=== PATIENT | male | born 1970 | race Caucasian/White ===

== ENCOUNTER 2020-07-16 10:06 | Outpatient (REF) | payer MEDICAID, SELFPAY ==
--- NOTE | 2020-07-16 10:13 | XR_ITS ---
EXAMINATION: XR LUMBOSACRAL SPINE CLINICAL INFORMATION: Lumbago with sciatica left and right side. COMPARISON: CT abdomen of 12/24/2010. TECHNIQUE: Three views of the lumbosacral spine. FINDINGS: There are 5 nonrib-bearing lumbar vertebra. No acute fracture, spondylolisthesis, or spondylolysis is appreciated. There is severe narrowing of the L5-S1 disc space with bilateral facet arthropathy right greater than left at the L5-S1 level. Sacroiliac joints unremarkable. Pedicles are intact. XR/XR lumbar spine 2-3V IMPRESSION: No acute fracture, spondylolisthesis, or spondylolysis. Degenerative disc disease L5-S1 with facet arthropathy.
== END 2020-07-16 10:07 | disposition home or self-care (01) ==
LOC: HO.XRAY 10:06
PROVIDERS: PCP Internal Medicine; Visit Provider Internal Medicine
DX: M54.41 Lumbago with sciatica, right side (principal); M54.42 Lumbago with sciatica, left side
CPT/HCPCS: 72100

== ENCOUNTER 2021-03-14 14:00 | Outpatient (RCR) | payer MEDICAID, SELFPAY | END 2021-03-19 14:29 | disposition home or self-care (01) | LOC: HO.PT 14:00 | PROVIDERS: PCP Internal Medicine; Visit Provider Internal Medicine | DX: M54.42 Lumbago with sciatica, left side (principal) | CPT/HCPCS: 97110; 97112; 97150; 97161 ==

== ENCOUNTER 2023-06-15 15:55 | Outpatient (REF) | payer OTHER, SELFPAY ==
[2023-06-15 17:24] LABS: MANUAL DIFF FLAG NO
[2023-06-15 17:42] LABS: Alanine Aminotransferase 14 U/L (0-40); Albumin Level 4.3 g/dL (3.5-5.0); Alkaline Phosphatase 83 U/L (39-117); Anion Gap 9 (12-20); Aspartate Amino Transferase 22 U/L (5-37); Bilirubin Direct 0.1 mg/dL (0.0-0.5); Bilirubin Total 0.3 mg/dL (0.0-1.0); Blood Urea Nitrogen 8 mg/dL (9-16); Calcium 9.5 mg/dL (8.4-10.2); Carbon Dioxide 28 mmol/L (22-29); Chloride 105 mmol/L (96-108); Estimated Glomerular Filt Rate > 60; Glucose Random 81 mg/dL (60-115); Potassium 3.7 mmol/L (3.3-5.1); Sodium 138 mmol/L (135-145); Total Protein 7.4 g/dL (6.5-8.0)
[2023-06-15 17:56] LABS: Basophils Absolute Auto 0.1 X10*3/uL (0.0-0.2); Basophils Percent Auto 0.6 % (0-2); Eosinophils Absolute Auto 0.1 X10*3/uL (0.0-0.4); Eosinophils Percent Auto 1.3 % (0-4); Hematocrit 44.5 % (42.0-52.0); Hemoglobin 14.6 g/dl (14.0-18.0); Imm Gran Abs Auto 0.04 X10*3/uL (0.00-0.03); Imm Gran Pct Auto 0.5 % (0.0-0.4); Lymphocytes Percent Auto 35.8 % (20-40); Mean Corpuscular HGB Conc 32.8 g/dl (31.0-36.0); Mean Corpuscular Hemoglobin 30.9 pg (27.0-33.0); Mean Corpuscular Volume 94.1 fL (80.0-98.0); Mean Platelet Volume 9.3 fL (9.4-12.4); Monocytes Absolute Auto 0.7 X10*3/uL (0.1-1.2); Monocytes Percent Auto 8.5 % (2-11); Neutrophils Absolute Auto 4.5 x10*3/uL (2.0-8.3); Neutrophils Percent Auto 53.3 % (45-73); Platelet Count 266 X10*3/uL (160-400); Red Blood Count 4.73 X10*6/uL (4.60-5.80); Red Cell Distribution Width 13.5 % (11.0-16.0); White Blood Count 8.5 X10*3/uL (4.8-10.8)
[2023-06-15 17:57] LABS: TSH reflex Free T4 1.78 uIU/mL (0.32-4.0); Vitamin D 25-OH Total 21.3 ng/mL (>30)
[2023-06-16 03:56] LABS: Syphilis Screen Nonreactive (Nonreactive)
[2023-06-16 04:08] LABS: HIV AB/AG Nonreactive (Nonreactive); HIV Num 1 0.05 S/CO (0.00-0.99)
== END 2023-06-15 15:56 | disposition home or self-care (01) ==
LOC: HO.HHCL 15:55
PROVIDERS: Visit Provider Internal Medicine
DX: M17.0 Bilateral primary osteoarthritis of knee (principal); R73.01 Impaired fasting glucose; Z72.51 High risk heterosexual behavior
CPT/HCPCS: 36415; 80053; 82248; 82306; 84443; 85025; 86780; 87389

== ENCOUNTER 2023-07-06 14:28 | Outpatient (REF) | payer OTHER, SELFPAY ==
[2023-07-06 18:41] LABS: CT PCR NOT DETECTED (Not Detect.); NG PCR NOT DETECTED (Not Detect.)
== END 2023-07-06 14:29 | disposition home or self-care (01) ==
LOC: HO.HHCL 14:28
PROVIDERS: Visit Provider Internal Medicine
DX: Z72.51 High risk heterosexual behavior (principal)
CPT/HCPCS: 0353U

== ENCOUNTER 2023-09-25 12:04 | Outpatient (REF) | payer OTHER, SELFPAY ==
[2023-09-28 10:48] LABS: TS Negative Control Passed; TS Panel A 0; TS Panel B 0; TS Positive Control Passed; TSpotTB Negative (Negative)
== END 2023-09-25 12:05 | disposition home or self-care (01) ==
LOC: HO.HHCL 12:04
PROVIDERS: Visit Provider Family Medicine
DX: Z11.1 Encounter for screening for respiratory tuberculosis (principal); L40.9 Psoriasis, unspecified
CPT/HCPCS: 36415; 86481

== ENCOUNTER 2023-11-30 13:45 | Outpatient (AMB) | payer OTHER, SELFPAY ==
--- NOTE | 2023-11-30 14:05 | MHC.OFFVIS ---
Intake Visit Reasons: Hx tubular Polyps Intake Note: New consult for Hx tubular polyps. Patient cc: acid reflex on and off, between diarrhea and constipationsom eswallowing problems. Director Of Physician Practices Required: Yes Director Of Physician Practices Name: [facility] Interpeter Accompanied by: Self / Same As Patient Allergies codeine [CODEINE] Allergy (Intermediate, Unverified 04/12/20 14:38) ITCHING acetaminophen [Percocet] Allergy (Unknown, Verified 03/19/20 00:00) oxycodone [Percocet] Allergy (Unknown, Verified 03/19/20 00:00) HPI HPI Hx tubular Polyps: Details: LAST COLONOSCOPY 02/27/2020 Findings: Terminal Ileum ? Not evaluated Cecum ? A 6-7 mm sessile polyp removed with a cold snare. Ascending Colon ? A 2.5 x 3 cms sessile polyp in mid AC raised with 4 cc of normal saline (submucosal injection) and removed with a hot snare and polypectomy site marked with lc ink. A 2nd 2.5 x 3 cms sessile polyp in the distal AC overlying a fold removed with a hot snare. Both polyps were retrieved with a García net. A few additional 5-8 mm sessile polyp which were not removed due to excessive length of the procedure. Transverse Colon - Normal Descending Colon ? Normal Sigmoid Colon ? A 5-6 mm sessile polyp removed with a cold biopsy and moderate diverticulosis. Rectum ? Normal Ano-rectum - Moderate internal hemorrhoids Colon preparation: Good after copious irrigation Impression and Post Procedure Diagnosis: Colonoscopy Findings: Four polyps removed Moderate diverticulosis seen in the sigmoid colon Moderate hemorrhoids on retroflexed exam. Plan: Await pathology results Patient has an appointment on 03/19/20 in the GI Clinic with TISH Johns. Repeat Colonoscopy in 1 year to check polypectomy sites in the AC and removal of remaining AC polyps. Above findings were reviewed with the patient and handout on colon polyps was given in the discharge area BIOPSIES SHOWED: A. Colon, sigmoid polyp, polypectomy: Fragments of hyperplastic polyp. B. Colon, cecal polyp, polypectomy: Polypoid colonic mucosa within normal limits; negative for dysplasia. C. Colon, ascending polyps, polypectomy: Fragments of tubular adenomas. D. Colon, right, biopsies: Colonic mucosa within normal limits; no evidence of microscopic colitis. TODAY'S VISIT: 53 year old? male here today for pre colonoscopy screening.?? Patient denies any gastrointestinal symptoms in the past or at present.? However he does admit to having occasional acid reflux, dyspepsia and trouble swallowing depending on what he eats.? Denies history of difficulty with sedation or anesthesia in the past.? Negative for history of sleep apnea.? Denies any history of cardiac, renal, pulmonary, or hepatic disease.?? No history of infectious? diseases like hepatitis A, B, C, HIV or tuberculosis.? Patient is not on any anticoagulation therapy. PFSH Surgical History (Updated 11/30/23 @ 14:13 by Raquel Noel) Hx of hernia repair Family History (Updated 11/30/23 @ 14:14 by Raquel Noel) Father Cancer Mother Cancer Social History (Updated 11/30/23 @ 14:16 by Raquel Noel) Household Members: Family Alcohol intake: never Patient Tobacco Use Status: Current everyday Tobacco user Tobacco use type: Cigarette Substance Use Type: Marijuana Review of Systems Const Denies weight gain and Denies weight loss ENT Reports no additional complaints, Reports dysphagia and Denies odynophagia Card Reports no additional complaints Resp Reports no additional complaints GI Denies abdominal pain, Denies belching, Denies melena, Denies bloating, Denies change in bowel habits, Reports dysphagia, Denies excessive flatus, Reports dyspepsia (Occasional), Reports heartburn (Occasional), Denies diarrhea, Denies loose stools, Denies nausea, Denies odynophagia and Denies vomiting Reports no additional complaints Musc Reports no additional complaints Neuro Reports no additional complaints Psych Reports no additional complaints Endo Reports no additional complaints Physical Exam Const General: healthy appearing, no acute distress and well developed Nutritional Appearance: well nourished Orientation/consciousness: patient oriented x3 Resp Effort & Inspection: normal respiratory effort, able to speak in complete sentences, no tracheal deviation and symmetric chest movement Auscultation: clear to auscultation bilaterally Cardio Rate: regular rate GI Inspection: Yes normal to inspection and No distended Palpation (GI): Soft to palpation, not firm, nontender and No hepatosplenomegaly present Auscultation: normal bowel sounds General: Yes no CVA tenderness Back/Spine/Pelvis Back: no CVA tenderness Skin General skin exam: elasticity normal, turgor normal and dry skin Neuro General: patient oriented x3 Psych Appearance: grossly normal Mental Status: mental status grossly normal Assessment & Plan Assessment & Plan (1) Screen for colon cancer: Code(s): Z12.11 - Encounter for screening for malignant neoplasm of colon Plan Patient denies any cardiac or respiratory symptoms.? Occasional acid reflux, dyspepsia and occasional dysphagia depending on what he eats. Patient moving his bowels, occasionally softer, denies feeling constipated. Denies any issues with anesthesia in the past.? Denies any history of sleep apnea.? No history infectious diseases in the past or present.? Not on any anticoagulation therapy.? No family or personal history of CRC.? Patient denies melena, hematochezia, unintentional weight loss or ribbon like stools.? Discussed at length the pre-procedure,? prep, diet & medications as well as what to expect prior, during and after the procedure.?? Stressed the importance of good bowel prep. ?Recommended the use of Vaseline or Calmoseptine OTC & baby wipes with bowel movements to promote comfort.? ?Patient verbalizes understanding and agrees to plan of care.? He was given the opportunity to ask questions and all questions answered.? We will see him after the procedure.? Medications: New bisacodyl (Dulcolax (bisacodyl)) take 4 tabs at noon the day before your colonoscopy 20 mg (4 x 5 mg) PO ONCE 4 tabs 0RF 1 day Z12.11 - Encounter for screening for malignant neoplasm of colon polyethylene glycol 3350 (Miralax) As directed by gastroenterology department at [facility] 238 grams PO ONCE 238 grams 0RF Z12.11 - Encounter for screening for malignant neoplasm of colon Coding Level of Care Code New Pt Level 3 (46561) Diagnoses Screen for colon cancer Z12.11 Time Spent (min) 40 Comment 30 minutes spent with patient and additional 10 minutes spent reviewing his records
== END 2023-11-30 14:43 | disposition home or self-care (01) ==
PROVIDERS: PCP Internal Medicine; Visit Provider Nurse Practitioner Family
DX: Z12.11 Encounter for screening for malignant neoplasm of colon (principal); Z01.818 Encounter for other preprocedural examination
CPT/HCPCS: 99203

== ENCOUNTER → 2023-11-30 13:45 | Outpatient (BNVA) | payer OTHER, SELFPAY | PROVIDERS: PCP Internal Medicine; Visit Provider Nurse Practitioner Family | DX: Z12.11 Encounter for screening for malignant neoplasm of colon (principal) | CPT/HCPCS: 99202 ==

== ENCOUNTER 2024-03-18 13:27 | Day surgery (SDC) | payer OTHER, SELFPAY ==
[2024-03-18 13:31] VITALS: BMI 23.2
[2024-03-18 13:42] VITALS: BP 145/83; PULSE 98; RESP 13; TEMP 36.1; O2SAT 96
--- NOTE | 2024-03-18 13:52 | MHC.SHP ---
Pre-Procedural Eval Section A - 24 Hr Update-Section A only Date of Service: 03/18/24 Section B - Complete if H&P > 30 days Chief Complaint: History of polyps, GERD Details of Present Illness: Hx of hernia repair Family History (Updated 11/30/23 @ 14:14 by Raquel Noel) Father Cancer Mother Cancer Allergies: Allergies Allergy/AdvReac Type Severity Reaction Status Date / Time codeine [CODEINE] Allergy Intermediate ITCHING Verified 03/18/24 13:36 oxycodone [Percocet] Allergy Unknown Anaphylaxis Verified 03/18/24 13:36 Review of Systems Review of Systems Comment: 10 point ROS negative Exam Exam Comment: Gen appear: No acute distress HEENT: no icterus Chest: No overt resp distress Abd: soft, nontender, nondistended Psych: Stable affect, answering questions appropriately Neuro: A/Ox3 noted to move all extremities spontaneously Ext: no peripheral edema Plan Diagnosis/Plan: Unchanged I have reviewed the history and physical and performed a pertinent physical examination on my patient. No changes have occurred unless specified. Time Spent With Patient Time: Total time managing care of this patient today ____ minutes.
--- NOTE | 2024-03-18 14:25 | P.OPN-COLO_ITS ---
Colonoscopy Operative Note Operative Note Date of Service: 03/18/24 Narrative: Procedure: Upper endoscopy and colonoscopy Indication: GERD, personal history of polyps Endoscopist: Felisa Gonzalez MD Anesthesia Provider: Jacobo Perez CRNA Anesthesia type: MAC Instrument: [id number] and [id number] EGD Procedure:?? The procedure, indications, preparation and potential complications were reviewed with the patient, who indicated understanding and gave written informed consent to proceed. The endoscope was introduced through the mouth, and advanced to the 2nd part of the duodenum. The mucosa was carefully examined on slow withdrawal of the endoscope. The patient tolerated the procedure well. There were no immediate complications.? EGD Findings:? * Esophagus:? Normal esophageal mucosa was noted. The Z-line was at 39 cm. There was a small hiatal hernia with the diaphragmatic pinch at 41 cm. Cold forceps biopsies were taken from lower esophagus to evaluate for histological signs of GERD. * Stomach:? Normal gastric mucosa. Retroflexion was performed in the cardia that showed Hill grade 3 hiatal hernia. Random cold forceps biopsies were taken from the stomach to rule out H pylori. * Duodenum:? Mild erythema and edema of duodenal bulb. Cold forceps biopsies w ere taken from the duodenal bulb and 2nd portion of the duodenum to rule out celiac sprue. Colonoscopy Procedure:? The patient was then turned for the colonoscopy. A digital rectal exam was performed which was normal.? A distal attachment cap was affixed to the tip of the scope and the colonoscope was then inserted through the anus and advanced through the colon and advanced to the cecum at 70 cm and terminal ileum.? Appendiceal orifice and ileocecal valve were identified. Mucosa was carefully examined under high definition white light as the instrument was slowly wit hdrawn in a retrograde panoramic fashion. Retroflexion was performed in ascending colon and rectum. The procedure was not difficult. The quality of the prep was BBPS: 2+2+2 = adequate Withdrawal time 11 minutes Limitations: No limitations Findings: Mucosa: Normal colon and terminal ileum mucosa. Protruding lesions: * 2 sessile polyps of size 4-6 mm noted in the transverse colon. Cold snare polypectomy was performed. The polyps were removed and retrieved. * Large internal hemorrhoids without stigmata of recent bleeding. Excavated lesions: * Mild diverticulosis of whole colon. Impression: 1. Hiatal hernia 2. Normal stomach (biopsy) 3. Duodenitis (biopsy) 4. Two polyps removed from the colon 5. Internal hemorrhoids 6. Diverticulosis Recommendations:?? * Follow-up path results * Avoid NSAIDs * Omeprazole 20 mg p.o. once daily for 8 weeks * Repeat colonoscopy in 5-7 years depending on the path
[2024-03-18 14:30] VITALS: BP 101/59; PULSE 74; RESP 12; TEMP 36.1; O2SAT 97
[2024-03-18 14:45] VITALS: BP 117/68; PULSE 80; RESP 16; TEMP 36.1; O2SAT 97
== END 2024-03-18 15:10 | disposition home or self-care (01) ==
PROVIDERS: PCP Internal Medicine; Visit Provider Internal Medicine
PROC: (CPT 45385; principal; 2024-03-18 13:50)
DX: Z12.11 Encounter for screening for malignant neoplasm of colon (principal); Z86.010 Personal history of colon polyps; D12.3 Benign neoplasm of transverse colon; K57.30 Diverticulosis of large intestine without perforation or abscess without bleeding; K64.8 Other hemorrhoids; K21.9 Gastro-esophageal reflux disease without esophagitis; K29.80 Duodenitis without bleeding; K44.9 Diaphragmatic hernia without obstruction or gangrene; Z88.5 Allergy status to narcotic agent; F17.210 Nicotine dependence, cigarettes, uncomplicated
CPT/HCPCS: 45385; 43239; 88305; 88313; 88342; J2704

== ENCOUNTER → 2024-03-18 13:27 | Outpatient (BNV) | payer OTHER, SELFPAY | PROVIDERS: PCP Internal Medicine; Visit Provider Internal Medicine | DX: Z12.11 Encounter for screening for malignant neoplasm of colon (principal); Z86.010 Personal history of colon polyps; K29.90 Gastroduodenitis, unspecified, without bleeding; D12.3 Benign neoplasm of transverse colon; K64.8 Other hemorrhoids; K57.30 Diverticulosis of large intestine without perforation or abscess without bleeding | CPT/HCPCS: 43239; 45385 ==

== ENCOUNTER 2025-04-14 13:21 | Outpatient (REF) | payer OTHER, SELFPAY ==
--- NOTE | ~2025-04-14 | XR_ITS ---
EXAMINATION: XR FOOT, RIGHT CLINICAL INFORMATION: plantar pain COMPARISON: None available. TECHNIQUE: AP, lateral, and oblique views of the right foot. FINDINGS: There is no fracture, dislocation, or suspicious bony lesion. There is normal alignment. Joint spaces are preserved. There is a tiny plantar calcaneal spur. Normal plantar arch. There is no soft tissue abnormality. XR/XR foot RT min 3V IMPRESSION: No acute bony or soft tissue abnormalities of the right foot. Electronically signed by: Rivera Wayne MD 04/14/2025 02:13 PM EDT
--- NOTE | ~2025-04-14 | XR_ITS ---
EXAMINATION: XR FOOT, LEFT CLINICAL INFORMATION: Plantar pain. COMPARISON: None available. TECHNIQUE: AP, lateral, and oblique views of the left foot. FINDINGS: There is no fracture, dislocation, or suspicious bony lesion. There is normal alignment. Joint spaces are preserved. There is a small plantar calcaneal spur. Normal plantar arch. There is no soft tissue abnormality. XR/XR foot LT min 3V IMPRESSION: No acute bony or soft tissue abnormalities of the left foot. Electronically signed by: Rivera Wayne MD 04/14/2025 02:11 PM EDT
--- OUTSIDE RECORDS SUMMARY | 2025-04-14 11:30 | XMS_ITS | Encounter Summary ---
Author Organization [employer] Address [address] [place] [address] [address] Care Team Providers Care Cae Engineer Name Role Phone Ruth Ann Mcgill MD Primary Care Provider + Reason for Referral * Medications - Closed Specialty Diagnoses / Procedures Referred By Rianna timmons Referred To Contact Diagnoses Psoriasis Ruth Ann Mcgill MD [address] [place] [phone] Phone: tel: fax: Referral ID Status Reason Start Date Expiration Date Visits Re quested Visits Authorized [id number] Closed 1 1 * Consultation (Routine) - Pending Review Specialty Diagnoses / Procedures Referred By Rianna timmons Referred To Contact Podiatry Diagnoses Pain of plantar aspect of heel Ruth Ann Mcgill MD [address] [place] [address] Phone: tel: fax: Referral ID Status Reason Start Date Expiration Date Visits Requested Visits Authorized [id number] Pending Review Specialty Services Required 04/14/2025 04/14/2026 1 1 Encounter Details Date Type Department Care Team (Late st Contact Info) Description 04/14/2025 11:30 AM EDT Telemedicine [facility] [address] [place] [phone] Ruth Ann Mcgill MD [address] [place] [address] Acute left-sided back pain with sciatica (Primary Dx); Psoriasis; Pain of plantar aspect of heel Social History Tobacco Use Types Packs/Day Years Used Date Smoking Tobacco: Every Day Cigarettes Passive Smoke Exposure: Past Smokeless Tobacco: Never Tobacco Cessation:Ready to Q uit: Not Asked; Counseling Given: Not Answered Alcohol Use Standard Drinks/Week Comments Never 0 (1 standard drink = 0.6 oz pur e alcohol) Depression Answer Date Recorded Patient Health Questionnaire-9 Score 0 01/21/2024 Patient Health Questionnaire-9 Score 0 01/21/2024 Last PHQ-9: Questionnaire Data Not on file 0 01/21/2024 Housing Stability Answer Date Recorded What is your housing situation today? I have leigh ozuna 04/07/[address] you li ve. Do you have problems with any of the following? None of the above 04/07/2025 Food Insecurity Answer Date Recorded Within the past 12 months, y ou worried that your food would run out before you got money to buy more: Never True 04/07/2025 Within the past 12 months,th e food you bought just didn't last and you didn't have enough money to get more: Never True 06/2025 Transportation Answer Date Recorded In the past 12 months, has l ack of transportation kept you from medical appts, meetings, work or from getting things needed for daily living? No 04/07/2025 Utilities Answer Date Recorded In the past 12 months, has t he electric, gas, oil or water company threatened to shut off services in your home? No 06/29/2024 Depression Answer Date Recorded Patient Health Questionnaire-2 Score 0 01/21/2024 Internet Access Answer Date Recorded Internet Access Q1 Yes 04/07/2025 Internet Access Q2 I cannot afford it 04/07/2025 Sex and Gender Information Value Date Recorded Sex Assigned at Male 05/26/2022 10:15 AM EDT Legal Sex Male 10:15 AM EDT Gender Identity Male 05/26/2022 10:15 AM EDT Sexual Orientation Choose not to disclose 2021 10:15 AM EDT documented as of this encounter Plan of Treatment Scheduled Orders Name Type Priority Associated Diagnoses Orde r Schedule XR Foot 3+ Views Left Imaging Routine Acute left-sided back pain with sciatica Expected: 04/14/2025 (Approximate), Expires: 04/14/2026 XR Foot 3+ Views Right Imaging Routine Pain of plantar aspect of heel Expected: 04/14/2025 (Approximate), Expires: 04/14/2026 Scheduled Referrals Name Type Priority Associated Diagnoses Orde r Schedule Referral to Podiatry Outpatient Referral Routine Pain of plantar aspect of heel Expected: 04/14/2025 (Approximate), Expires: 04/14/2026 documented as of this encounter Visit Diagnoses Diagnosis Acute left-sided back pain with sciatica- Primary Psoriasis Other psoriasis Pain of plantar aspect of heel documented in this encounter Additional Health Concerns Assessment Noted Time PHQ-9 Depression Total Score: 0 01/21/20 24 4:06 PM EDT documented as of this encounter Care Teams Cae Engineer Relationship Specialty Start Date End Date Ruth Ann Mcgill MD [address] [place] [phone] PCP - General Family Medicine 07/02/16 documented as of this encounter
--- OUTSIDE RECORDS SUMMARY | 2025-04-14 13:24 | XMS_ITS | Encounter Summary ---
Author Organization [employer] Address [address] [facility] [address] [place] [address] Care Team Providers Care Lean Manufacturing Specialist Name Role Phone Ruth Ann Mcgill MD Primary Care Provider + Encounter Details Date Type Department Care Team (Latest Contact Info) Description 04/14/2025 Travel Social History Tobacco Use Types Packs/Day Years Used Date Smoking Tobacco: Every Day Cigarettes Passive Smoke Exposure: Past Smokeless Tobacco: Never Alcohol Use Standard Drinks/Week Comments Never 0 [...] as of this encounter Plan of Treatment Not on file documented as of this encounter Visit Diagnoses Not on filedocumented in this encounter Additional Health Concerns Assessment Noted Time PHQ-9 Depression Total Score: 0 01/21/20 24 4:06 PM EDT documented as of this encounter Care Teams Lean Manufacturing Specialist Relationship Specialty Start Date End Date Ruth Ann Mcgill MD [address] [place] [phone] PCP - General Family Medicine 07/02/16 documented as of this encounter
--- OUTSIDE RECORDS SUMMARY | 2025-04-14 13:24 | XMS_ITS | Encounter Summary ---
Author Organization [employer] Address [address] [facility] [address] [place] [address] Care Team Providers Care Crop Or Grain Farmworker Name Role Phone Ruth Ann Mcgill MD Primary Care Provider + Reason for Visit * Reason Onset Date Comments Change visit type 04/10/2025 Encounter Details Date Type Department Care Team ([facility] st Contact Info) Description 04/10/2025 Telephone [facility] [address] [place], [place] [phone] Ruth Ann Mcgill MD [address] [place] [address] Change visit type Social History Tobacco Use Types Packs/Day Years Used Date Smoking Tobacco: Every Day Cigarettes Passive Smoke Exposure: Never Smokeless Tobacco: Never Alcohol Use Standard Drinks/Week [...] AM EDT documented as of this encounter Miscellaneous Notes * Telephone Encounter - Melanie Abreu [place] - 04/10/2025 4:21 PM EDT T/C to pt to inform that due to provider working remote on 04/14/25 the visit has to be change to a tele. Pt was not happy with the change. Pt stated that last appt was over the phone and that he needs a doctor who is able to see him in person. Because that is why he pays health insurance. Pt statedthat he will be coming in person on Thursday to make a complain. documented in this encounter Plan of Treatment Not on file documented as of this encounter Visit Diagnoses Not on filedocumented in this encounter Additional Health Concerns Assessment Noted Time PHQ-9 Depression Total Score: 0 01/21/20 24 4:06 PM EDT documented as of this encounter Care Teams Crop Or Grain Farmworker Relationship Specialty Start Date End Date Ruth Ann Mcgill MD [address] [place] [phone] PCP - General Family Medicine 07/02/16 documented as of this encounter
--- OUTSIDE RECORDS SUMMARY | 2025-04-14 13:24 | XMS_ITS | Encounter Summary ---
Author Organization [employer] Address [address] [facility] [address] [place] [address] Care Team Providers Care Switch Operators Supervisor Name Role Phone Ruth Ann Mcgill MD Primary Care Provider + Encounter Details Date Type Department Care Team ([facility] st Contact Info) Description 09/22/2023 Orders Only [facility] [address] [place], [place] [phone] Sue Gamez MD [address] [place] [address] Psoriasis (Primary Dx) Social History Tobacco Use Types Packs/Day Years Used Date Smoking Tobacco: Every Day Cigarettes Passive Smoke Exposure: Never Smokeless Tobacco: Never Alcohol Use Standard Drinks/Week Comments Never 0 (1 standard drink = 0.6 oz pur e alcohol) Depression Answer Date Recorded Patient Health Questionnaire-9 Score 4 08/12/2022 Housing Stability Answer Date Recorded What is your housing situation today? I have leigh ozuna 05/07/[address] you li ve. Do you have problems with any of the following? Pests such as bugs, ants, or mice;Lead Cut Off or Pipes 05/07/2023 Food Insecurity Answer Date Recorded Within the past 12 months, y ou worried that your food would run out before you got money to buy more: Never True 05/11/2023 Within the past 12 months,th e food you bought just didn't last and you didn't have enough money to get more: Never True Transportation Answer Date Recorded In the past 12 months, has l ack of transportation kept you from medical appts, meetings, work or from getting things needed for daily living? No 05/11/2023 Utilities Answer Date Recorded In the past 12 months, has t he electric, gas, oil or water company threatened to shut off services in your home? No 05/11/2023 Depression Answer Date Recorded Patient Health Questionnaire-2 Score 2 08/12/2022 Sex and Gender Information Value Date Recorded Sex Assigned at Male 05/26/2022 10:15 AM EDT Legal Sex Male 10:15 AM EDT Gender Identity Male 05/26/2022 10:15 AM EDT Sexual Orientation Choose not to disclose 2021 10:15 AM EDT documented as of this encounter Plan of Treatment Not on file documented as of this encounter Visit Diagnoses Diagnosis Psoriasis- Primary Other psoriasis documented in this encounter Additional Health Concerns Assessment Noted Time PHQ-9 Depression Total Score: 4 08/12/19 23 4:07 PM EST documented as of this encounter Care Teams Switch Operators Supervisor Relationship Specialty Start Date End Date Ruth Ann Mcgill MD [address] [place] [phone] PCP - General Family Medicine 07/02/16 documented as of this encounter
--- OUTSIDE RECORDS SUMMARY | 2025-04-14 13:24 | XMS_ITS | Clinical Summary ---
Author Organization [employer] Address [address] [place] [address] 7 [place] [address] Care Team Providers Care Insurance Sales Agent Name Role Phone Ruth Ann Mcgill MD Primary Care Provider + Allergies Active Allergy Reactions Criticality Noted Date Comments Acetaminophen 10/24/2010 Other reaction(s): unspecified Codeine 06/12/2016 Oxycodone 10/24/2010 Other reaction(s): unspecified Medications nicotine (Nicoderm, Step 1) 21 MG/24HR patch Place 1 patch on the skin at bed time. 022 Active Secukinumab, 300 MG Dose, (Cosentyx Sensoready, 300 MG,) 150 MG/ML solution auto-injector Indications:P soriasis INJECT 300MG SUBCUTANEOUSLY ONCE MONTHLY 2 mL 3 025 Active cyclobenzapri ne (Flexeril) 10 MG tablet Take 1 tablet (10 mg) by mouth if needed each day for muscle spasms. 2 times every day pm pain 30 tablet 025 Active halobetasol (UltraVATE) 0.05 % ointmentIndic ations:Psoria sis Apply topically 2 times daily. 50 g 1 025 Active calcipotriene (Dovonex) 0.005 % creamIndicati ons:Psoriasis Apply topically 2 times daily. 60 g 1 025 Active cyclobenzapri ne (Flexeril) 10 MG tablet Take 10 mg by mouth. 2 times every day pm pain 021 2024 Discontinued(R eorder (will not trigger notification to Pharmacy)) Diclofenac Sodium 1 % gel Take 2 g by mouth in the morning, at noon, and at bedtime. To the affected area 021 2024 Discontinued(T herapy completed) calcipotriene (Dovonex) 0.005 % creamIndicati ons:Psoriasis Apply topically 2 times daily. 60 g 3 09/30/ 025 2024 Discontinued(I neffective) halobetasol (UltraVATE) 0.05 % ointmentIndic ations:Psoria sis Apply topically 2 times daily. 50 g 2 025 2024 Discontinued(I neffective) Cosentyx Sensoready, 300 MG, 150 MG/ML solution auto-injector INJECT 300MG SUBCUTANEOUSLY ONCE MONTHLY 2 mL 5 025 2024 Discontinued(R eorder (will not trigger notification to Pharmacy)) Active Problems Problem Noted Date Diagnosed Date Pain of plantar aspect of heel 04/14/2025 Major depressive disorder with psychotic feature s 07/06/2024 Assessment & Plan (01/04/2025 3:43 PM EDT): He is doing well as he stays busy at work. Patient feels safe and is able to reach out for safety, has crisis numbers and he is aware that he can come to our walk-in center as needed He does not want to start any medication, I will follow-up at the next visit Assessment & Plan (07/06/2024 11:51 AM EST): He is doing well, staying at work helps. He feels safe at home and is able to reach out for help. Follow up on next visit or earlier prn. Encounter for HIV pre-exposure prophylaxis 07/06 Assessment & Plan (01/04/2025 3:42 PM EDT): Patient feels safe and comfortable on his current relationship. Advised him to get labs done and follow-up with me I will refer him to CD program for additional follow-up and start PrEP once labs are done, he is inclining towards starting cabotegravir. Assessment & Plan (07/06/2024 12:40 PM EST): I gave him information re PrEP and discussed re condom use. He's on a monogamous relationship this year, with a new partner, and feels safe. He will callback prn or reach out to CRS if he wants to start Truvada or Descovy although he seems to be interested on a parenteral therapy (cabotegravir) due to improved compliance. Varicose veins of both lower extremities with in flammation 01/21/2024 Assessment & Plan (01/21/2024 4:43 PM EDT): Advised to wear compression stockings daily and will f/u next visit. Vitamin D deficiency 07/06/2023 Assessment & Plan (07/06/2023 5:39 PM EST): Restart vitamin D supplementation x6 MOS Encounter for preventive health examination 06/26 Assessment & Plan (07/06/2024 12:40 PM EST): Discussed with patient re increase fresh fruit and vegetable intake. Counseled re moderate exercise as tolerated, up to 20min/d Patient feels safe at home. Eye exam: Overdue, advised Pt to confirm insurance and visit Eye Clinic at earliest convenience. CRC screen: UTD, next one due in 3-5 years. Lipids/FBS: Overdue, to be ordered. Vaccinations: Due for TDAP, PCV-20, and Flue, he declined Covid and will do PCV- 20 and TDAP today. Otherwise all other vaccinations UTD. Dental visit : Overdue, advised Pt to go regularly every 6 months. I gave him information re [facility] care [facility], to discuss with family members, we'll fu at next appt or he can drop it at HIM. Assessment & Plan (07/06/2023 5:41 PM EST): Discussed with patient re increase fresh fruit and vegetable intake. Counseled re moderate exercise as tolerated, up to 20min/d Patient feels safe at home. Eye exam Refer to Unix System Administrator CRC screen Up To Date, needs f/u colonoscopy Lipids/FBS Up To Date, next one due May 2024 Vaccinations Decline COVID immunization, agreed to PCV 20 today Dental visit [employer] to make appt in our dental clinic Hypertrophic toenail 04/14/2023 Assessment & Plan (04/14/2023 3:19 PM EDT): Refer to podiatry For toenail trimming Primary osteoarthritis of both knees 04/14/2023 Assessment & Plan (04/14/2023 3:04 PM EDT): Take ibuprofen prn pain Advised to come to Walk In Center prn knee inflammation to ro psoriatic arthritis FU in 3-4m Weight loss 04/14/2023 Assessment & Plan (04/14/2023 3:21 PM EDT): Weight is normal, BMI is at goal. I discussed with patient re healthy eating habits: at least 3 meals per day, I told him to buy food on [employer] etc. Will refer to director of respiratory therapy. Acute ankle pain 06/12/2022 Acute back pain with sciatica 06/12/2022 Anxiety about health 06/12/2022 Chronic right shoulder pain 06/12/2022 Hip pain 06/12/2022 Immunosuppression 06/12/2022 Assessment & Plan (01/04/2025 3:43 PM EDT): He is on Cosentyx, doing well, no recurrent infections or OIs. Assessment & Plan (07/06/2024 11:50 AM EST): He is on Cosentyx, doing well. Immunization as advised above. Paresthesia 06/12/2022 Tubular adenoma of colon 06/12/2022 Overview (04/05/2024): Colonoscopy on 03/18/24 ([facility]): TA x 2 Assessment & Plan (01/21/2024 4:42 PM EDT): Pt scheduled for colonoscopy next month. Assessment & Plan (07/06/2023 5:38 PM EST): Needs colonoscopy to be repeated Will refer to GI Tobacco user 06/12/2022 Assessment & Plan (04/14/2023 3:23 PM EDT): Currently using 1/2 ppd. He will try to cut down on his own and mariusz back when ready to start nicotine replacement therapy Cannabis abuse 09/30/2018 Generalized anxiety disorder 09/30/2018 Seborrheic dermatitis 09/30/2018 Ankle joint pain 09/09/2018 Pure hypercholesterolemia 09/09/2018 Hyperlipidemia 09/13/2013 Impaired fasting glucose 09/13/2013 Assessment & Plan (01/21/2024 4:42 PM EDT): A1c is at goal. I have discussed with patient regarding increasing physicial activity and decrease calorie intake I'll check FBS with next set of labs. To check RBS at next visit. FU with me next visit Assessment & Plan (07/06/2023 5:35 PM EST): I have discussed with patient regarding increasing physicial activity and decrease calorie intake I'll check FBS with next set of labs. To check RBS at next visit. FU with me next visi Assessment & Plan (04/14/2023 3:21 PM EDT): Order labs Counseled re more frequent low calorie/carb meals. Encouraged physical activity as tolerated. FU in 3-4 months. Diverticular disease 09/07/2013 Psoriasis 09/07/2013 Resolved Problems Problem Noted Date Diagnosed Date Resolved Date Cellulitis of right lower extremity 01/21/2024 01/04/2025 Assessment & Plan (01/21/2024 4:40 PM EDT): Duricef x 7 days. Pt will call back PRN if symptoms do not improve in 1 week. Unprotected sex 06/12/2022 01/04/2025 Assessment & Plan (04/14/2023 3:22 PM EDT): I advised to use condom at all times. 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 We discussed about recurrent s/s MDD and he will reconsult prn with MH provider at psychopharmacology clinic. FU in 2-3m and restart low dose meds to titrate up again if needed and willing to do. He feels safe at home at this time and is able to reach out for safety Assessment & Plan (08/12/2022 5:31 PM EST): Reviewed with patient that stopping his medications abruptly could lead to recurrence of his depression, hallucinations, and anxiety. If he feels he is doing well and doesn't need to take as he has been, urged to decrease gradually which he is willing to do. Will stop Abilify 20 mg and start Abilify 10 mg daily. Will stop Wellbutrin XL 300 mg and start Wellbutrin XL 150 mg daily. Does want to continue Clonidine as usual. F/U with me in 1 month. He agrees with the plan. Encounters Date Type Department Care Team Description 04/14/2025 11:30 AM EDT Telemedicine [facility] MEDICINE [address] [place] [id number] Ruth Ann Mcgill MD Acute left-sided back pain with sciatica (Primary Dx); Psoriasis; Pain of plantar aspect of heel 04/14/2025 Travel 04/13/2025 Telephone [facility] MEDICINE [address] [place] [address] Ruth Ann Mcgill MD Chart Prep 04/10/2025 Telephone [facility] [address] [place], [place] [phone] Ruth Ann Mcgill MD Change visit type 04/07/2025 Patient Outreach [facility] P[facility] [address] [place], [place] [phone] Ruth Ann Mcgill MD Pre-visit Planning (SDOH negative. Tobacco screening positive. ) 03/02/2025 Telephone [facility] MEDICINE [address] [place] [address] Ruth Ann Mcgill MD 01/26/2025 Telephone [facility] MED[facility]INE [address] [place] [address] Ruth Ann Mcgill MD March recall from Last 3 Months Immunizations Immunization Administration Dates Next Due Hep B, Adolescent or Pediatric 06/14/2018 Hep B, adult 11/11/2018,10/14/2018 Influenza Injectable Quadriv alant Preservative Free IIV4 MDCK 04/14/2023 Influenza injectable quadriv alent IIV4 with preservative 07/02/2017 Influenza injectable quadriv alent preservative free 06/25/2021,04/27/2020,08/19/2019 Influenza, IIV3, injectable 04/28/2014 Influenza, Split (incl. fei fied surface antigen) 09/09/2013 Influenza, seasonal, injecta ble, preservative free 07/06/2024 Pfizer Covid-19 Vaccine 12+ 05/29/2021, Pneumococcal Conjugate PCV 20 07/06/2024 Pneumococcal Polysaccharide PPSV23 09/09/2013 Tdap 11/17/2013 Zoster, Recombinant 03/19/2021,01/15/2021 Zoster, live 03/08/2019 Social History Tobacco Use Types Packs/Day Years [...] not to disclose 2021 10:15 AM EDT Last Filed Vital Signs Vital Sign Reading Time Taken Comments Blood Pressure 144/92 09/30/2024 10:15 AM EST Pulse 80 09/30/2024 10:15 AM EST Temperature 36.7 C (98 F) 09/30/2024 10:15 AM EST Respiratory Rate 17 09/30/2024 10:15 AM EST Oxygen Saturation 100% 07/06/2024 10:32 AM EST Inhaled Oxygen Concentration - - Weight 76.7 kg (169 lb 3.2 oz) 09/30/2024 10:15 AM EST Height 170.2 cm (5' 7 ) 07/06/2024 10:32 AM EST Body Mass Index 26.5 07/06/2024 10:32 AM EST Plan of Treatment Health Maintenance Due Date Last Done Comments CT Colonography 1968 FIT DNA/Cologuard 1968 FIT 1968 FOBT 1968 Sigmoidoscopy 1968 Disability Screening 1968 Alcohol/Substance Use Screening 1980 Hepatitis C Screening 02/03/1986 Hepatitis B Vaccines (3 of 3 - 19+ 3-dose series) 04/16/2019 11/11/2018, 10/14/2018, 06/14/2018 COVID-19 Vaccine (3 - Pfizer risk series) 06/26/2021 05/29/2021, 05/08/2021 DTaP/Tdap/Td Vaccines (2 - Td or Tdap) 11/18/2023 11/17/2013 Depression Screening 01/20/2025 01/21/2024, 01/21/20 Influenza Vaccine (#1) 2025 , 04/14/2023, 06/25/2021, Additional history exists Lipid Panel 07/18/2025 07/18/2020 SDOH Screening 04/07/2026 04/07/2025 Tobacco Screening 04/14/2026 04/14/2025 Colonoscopy 03/18/2027 03/18/2024 Colorectal Cancer Screening 03/18/2027 RSV Patients and Patients Aged 60 years or older (1 - 1-dose 75+ series) 02/03/2043 Zoster Vaccines Completed 03/19/2021, 12/26, 03/08/2019 HIV Screening Completed 06/15/2023 Pneumococcal Vaccine: 50+ Years Completed 07/06/2024, 09/09/2013 HIB Vaccines Aged Out No longer eligi ble based on patient's age to complete this topic HPV Vaccines Aged Out No longer eligi ble based on patient's age to complete this topic Hepatitis A Vaccines Aged Out No long er eligible based on patient's age to complete this topic IPV Vaccines Aged Out No longer eligi ble based on patient's age to complete this topic Meningococcal B Vaccine Aged Out No l onger eligible based on patient's age to complete this topic Meningococcal Vaccine Aged Out No alpa astrid eligible based on patient's age to complete this topic RSV under 20 months Aged Out No longe r eligible based on patient's age to complete this topic Rotavirus Vaccines Aged Out No longer eligible based on patient's age to complete this topic Procedures Procedure Name Priority Date/Time Associated Diagnosis Comments HM COLONOSCOPY Routine 03/18/2024 HIV 1/2 ANTIGEN/ANTIBODY, FOURTH GENERATION W/RFL Routine 06/15/2023 3:59 PM EST Primary osteoarthritis of both knees Unprotected sex LIPID PANEL, STANDARD Routine 07/18/2020 9:15 AM EST from Last 3 Months or Most Recently Relevant to Health Maintenance Results * (ABNORMAL) Hm Colonoscopy (03/18/2024) [facility] Colonoscopy Abnormal(A ) Normal Comment:TA Ruth Ann Mcgill MD HEALTH MAINTENANCE Final Result * HIV-1/2 Antigen and Antibodies, Fourth Generation, with Reflexes (06/15/2023 3:59 PM EST) [facility] HIV AB/AG Nonreactive Nonreactive [facility] Comment:HIV-1 p24 Ag and/or HIV-1/HIV-2 Ab not detected.A test result that is nonreactive does not exclude thepossibility of exposure to or infection with HIV-1 and/orHIV-2. Nonreactive results in this assay for individualswith prior exposure to HIV-1 and/or HIV-2 may be due toantigen and antibody levels that are below the limit ofdetection of this assay.The Qufenqi HIV Ag/Ab Combo assay result andsupplemental assay results should be interpreted inconjunction with the patient's clinical presentation,history and other laboratory results. If the results areinconsistent with clinical evidence, additional testing issuggested to confirm the result. Blood Venous blood specimen / Unknown 06/15/2023 3:59 PM EST 06/15/2023 5:23 PM EST Ruth Ann Mcgill MD LAB BLOOD ORDERABLES Fin al Result [facility] [address] [place] [phone] * (ABNORMAL) LIPID PANEL, STANDARD (07/18/2020 9:15 AM EST) [facility] Chol/HDLC Ratio 4.3 <5.0 (calc) [facility] Cholesterol, Total 175 <200 mg/dL [facility] HDL Cholesterol 41 > OR = 40 mg/dL [facility] LDL Cholesterol 109(H) mg/dL (calc) [facility] Comment: Reference range: <100 Desirable range <100 mg/dL for primary prevention; <70 mg/dL for patients with CHD or diabetic patients with > or = 2 CHD risk factors. LDL-C is now calculated using the Mar calculation, which is a validated novel method providing better accuracy than the Friedewald equation in the estimation of LDL-C. Wallace CASAS et al. RICHARDSON. 2013;310(19): 6856-5964 (http://education.[employer].Exiles/faq/CMU496) Non-HDL Cholesterol 134(H) <130 mg/dL (calc) [facility] Comment: For patients with diabetes plus 1 major ASCVD risk factor, treating to a non-HDL-C goal of <100 mg/dL (LDL-C of <70 mg/dL) is considered a therapeutic option. Triglycerides 137 <150 mg/dL [facility] 07/18/2020 9:15 AM EST Ruth Ann Mgcill MD LAB BLOOD ORDERABLES Fin al Result [facility] [address] from Last 3 Months or Most Recently Relevant to Health Maintenance [place] [address] [id number] Care Teams Insurance Sales Agent Relationship Specialty Start Date End Date Ruth Ann Mcgill MD [address] [place] [phone] PCP - General Family Medicine 07/02/16
--- OUTSIDE RECORDS SUMMARY | 2025-04-14 13:24 | XMS_ITS | Encounter Summary ---
Author Organization [employer] Address [address] [place] [address] 7 [place] [address] Care Team Providers Care Studio Operator Name Role Phone Ruth Ann Mcgill MD Primary Care Provider + Reason for Visit * Reason Comments Med Refill Encounter Details Date Type Department Care Team ([facility] st Contact Info) Description 03/18/2023 Refill [facility] MEDICINE [address] [place], [place] [phone] Chris Chau MD [address] [place] [address] Social History Tobacco Use Types Packs/Day Years Used Date Smoking Tobacco: Never Passive Smoke Exposure: Never Smokeless Tobacco: Never Depression Answer Date Recorded Patient Health Questionnaire-9 Score 4 08/12/2022 Depression Answer Date Recorded Patient Health Questionnaire-2 Score 2 08/12/2022 Sex and Gender Information Value Date Recorded Sex Assigned at Male 05/26/2022 10:15 AM EDT Legal Sex Male 10:15 AM EDT Gender Identity Male 05/26/2022 10:15 AM EDT Sexual Orientation Choose not to disclose 2021 10:15 AM EDT documented as of this encounter Miscellaneous Notes * Telephone Encounter - Chris Chau MD - 04/10/2023 12:22 PM EDT duplicate documented in this encounter Plan of Treatment Not on file documented as of this encounter Visit Diagnoses Not on filedocumented in this encounter Additional Health Concerns Assessment Noted Time PHQ-9 Depression Total Score: 4 08/12/19 23 4:07 PM EST documented as of this encounter Care Teams Studio Operator Relationship Specialty Start Date End Date Ruth Ann Mcgill MD [address] [place] [id number] PCP - General Family Medicine 07/02/16 documented as of this encounter
--- OUTSIDE RECORDS SUMMARY | 2025-04-14 13:24 | XMS_ITS | Encounter Summary ---
Author Organization [employer] Address [address] [facility] 7t [place] [address] Care Team Providers Care Sap Basis Consultant Name Role Phone Ruth Ann Mcgill MD Primary Care Provider + Reason for Visit * Reason Comments Med Refill Encounter Details Date Type Department Care Team ([facility] st Contact Info) Description 03/11/2024 Refill [facility] MEDICINE [address] [place], [place] [phone] Ruth Ann Mcgill MD [address] [place], [place] [phone] Social History Tobacco Use Types Packs/Day Years [...] is your housing situation today? I have leighjeny ozuna 05/07/[address] you li ve. Do you have problems with any of the following? Pests such as bugs, ants, or mice;Lead Lowman or Pipes 05/07/2023 Food Insecurity Answer Date Recorded Within the past 12 months, y ou worried that your food would run out before you got money to buy more: Never True 05/11/2023 Within the past 12 months,th e food you bought just didn't last and you didn't have enough money to get more: Never True 10/ Transportation Answer Date Recorded In the past [...] Recorded Patient Health Questionnaire-2 Score 0 01/21/2024 Sex and Gender Information Value Date Recorded [...] documented as of this encounter Care Teams Sap Basis Consultant Relationship Specialty Start Date End Date Ruth Ann Mcgill MD [address] [place] [id number] PCP - General Family Medicine 07/02/16 documented as of this encounter
--- OUTSIDE RECORDS SUMMARY | 2025-04-14 13:24 | XMS_ITS | Encounter Summary ---
Author Organization [employer] Address [address] [facility] 7 [place] [address] Care Team Providers Care Claims Coordinator Name Role Phone Ruth Ann Mcgill MD Primary Care Provider + Reason for Visit * Reason Onset Date Comments Chart Prep 04/13/2025 Encounter Details Date Type Department Care Team ([facility] Contact Info) Description 04/13/2025 Telephone [facility] MEDICINE [address] [place] [address] Ruth Ann Mcgill MD [address] [place] [address] Chart Prep Social History Tobacco Use Types Packs/Day Years [...] encounter Miscellaneous Notes * Telephone Encounter - Josephine Samuels MA - 04/13/2025 9:39 AM EDT Chart Prep Labs: not done Images: not applicable Referrals: appointment pending Vaccines due: Covid, Flu, Tdap, and Hep B Screenings: not applicable Overdue care gaps: SBIRT, PHQ-9, JUANITA-7, and Disability screen documented in this encounter Plan of Treatment Not on file documented as of this encounter Visit Diagnoses Not on filedocumented in this encounter Additional Health Concerns Assessment Noted Time PHQ-9 Depression Total Score: 0 01/21/20 24 4:06 PM EDT documented as of this encounter Care Teams Claims Coordinator Relationship Specialty Start Date End Date Ruth Ann Mcgill MD [address] [place] [phone] PCP - General Family Medicine 07/02/16 documented as of this encounter
--- OUTSIDE RECORDS SUMMARY | 2025-04-14 13:24 | XMS_ITS | Encounter Summary ---
Author Organization [employer] Address [address] [place] [address] [address] [place] [address] Care Team Providers Care Wildlife Science Professor Name Role Phone Ruth Ann Mcgill MD Primary Care Provider + Encounter Details Date Type Department Care Team (Late st Contact Info) Description 06/09/2022 Abstract [facility] MEDICINE [address] [place] [address] Provider, MD Angelica Social History Tobacco Use Types Packs/Day Years Used Date Smoking Tobacco: Never Assessed Sex and Gender Information Value Date Recorded Sex Assigned at Male 05/26/2022 10:15 AM EDT Legal Sex Male 10:15 AM EDT Gender Identity Male 05/26/2022 10:15 AM EDT Sexual Orientation Choose not to disclose 2021 10:15 AM EDT documented as of this encounter Plan of Treatment Not on file documented as of this encounter Visit Diagnoses Not on filedocumented in this encounter Care Teams Wildlife Science Professor Relationship Specialty Start Date End Date Ruth Ann Mcgill MD [address] [place] [address] PCP - General Family Medicine 07/02/16 documented as of this encounter
[2025-04-14 16:15] LABS: MANUAL DIFF FLAG NO
[2025-04-14 16:23] LABS: Hematocrit 43.5 % (42.0-52.0); Hemoglobin 14.8 g/dl (14.0-18.0); Imm Gran Abs Auto 0.05 X10*3/uL (0.00-0.03); Imm Gran Pct Auto 0.6 % (0.0-0.4); Lymphocytes Absolute Auto 1.7 X10*3/uL (1.2-4.9); Mean Corpuscular HGB Conc 34.0 g/dl (31.0-36.0); Mean Corpuscular Hemoglobin 30.0 pg (27.0-33.0); Mean Corpuscular Volume 88.2 fL (80.0-98.0); NRBC Abs Auto 0.000 X10*3/uL (0.0-0.012); NRBC Pct Auto 0.0 /100WBC (0.0-0.2); Platelet Count 262 X10*3/uL (160-400); Red Blood Count 4.93 X10*6/uL (4.60-5.80); White Blood Count 7.7 X10*3/uL (4.8-10.8)
[2025-04-14 16:51] LABS: Alanine Aminotransferase 22 U/L (0-40); Albumin Level 4.6 g/dL (3.5-5.0); Alkaline Phosphatase 87 U/L (39-117); Anion Gap 11 (12-20); Aspartate Amino Transferase 29 U/L (5-37); Blood Urea Nitrogen 13 mg/dL (9-16); Calcium 9.1 mg/dL (8.4-10.2); Carbon Dioxide 26 mmol/L (22-29); Chloride 106 mmol/L (96-108); Cholesterol 172 mg/dL (<200); Estimated Glomerular Filt Rate > 60; HDL Cholesterol 42 mg/dL (>40); Potassium 4.0 mmol/L (3.3-5.1); Sodium 139 mmol/L (135-145); Total Protein 7.6 g/dL (6.5-8.0); Triglycerides 100 mg/dL (<150)
[2025-04-14 19:07] LABS: Reflex LDLD? No
[2025-04-15 08:44] LABS: Syphilis Screen Nonreactive (Nonreactive)
[2025-04-15 08:52] LABS: HBS Num1 0.49 mIU/mL (0-7.99); HBc Num1 0.27 S/CO (0.00-0.79); HBsAGNum1 0.54 S/CO (0.00-0.99); HIV Num 1 0.05 S/CO (0.00-0.99); Hepatitis A Antibody IgM 0.19 Index (0-0.79); Hepatitis B Surface Antigen Negative (Negative); ~HepC Num1 0.10 S/CO (0.00-0.79); ~Hepatitis A Antibody IgM Nonreactive (Nonreactive); ~Hepatitis B Surface Antibody NONREACTIVE (Nonreactive); ~Hepatitis C Antibody Nonreactive (Nonreactive)
[2025-04-18 13:18] LABS: TS Negative Control Passed; TS Panel A 0; TS Panel B 0; TS Positive Control Passed; TSpotTB Negative (Negative)
== END 2025-04-14 13:22 | disposition home or self-care (01) ==
LOC: HO.HHCL 13:21
PROVIDERS: PCP Internal Medicine; Visit Provider Internal Medicine
DX: Z00.00 Encounter for general adult medical examination without abnormal findings (principal); Z11.4 Encounter for screening for human immunodeficiency virus [HIV]; Z11.1 Encounter for screening for respiratory tuberculosis; Z11.59 Encounter for screening for other viral diseases; Z11.3 Encounter for screening for infections with a predominantly sexual mode of transmission; F33.41 Major depressive disorder, recurrent, in partial remission; M54.42 Lumbago with sciatica, left side; M79.671 Pain in right foot; M79.672 Pain in left foot
CPT/HCPCS: 36415; 73630; 80053; 80061; 82306; 84443; 85025; 86481; 86704; 86706; 86709; 86780; 86803; 87340; 87389

== ENCOUNTER → 2025-04-14 13:37 | Outpatient (BNV) | payer OTHER, SELFPAY | PROVIDERS: PCP Internal Medicine; Visit Provider Radiology Diagnostic Radiology | DX: M54.42 Lumbago with sciatica, left side (principal); M79.671 Pain in right foot | CPT/HCPCS: 73630 ==

== ENCOUNTER 2025-06-28 11:15 | Outpatient (REF) | payer OTHER, SELFPAY ==
--- OUTSIDE RECORDS SUMMARY | 2025-06-28 10:15 | XMS_ITS | Encounter Summary ---
Author Organization [facility] Address [address] [place] [address] Care Team Providers Care Jeweler Apprentice Name Role Phone Ruth Ann Mcgill MD Primary Care Provider + Encounter Details Date Type Department Care Team (Late st Contact Info) Description 06/28/2025 10:15 AM EST Office Visit [facility] MED[facility] [address], [place] [id number] Ruth Ann Mcgill MD [address] [place] [address] Major depressive disorder with psychotic features (CMS/HCC) (HCC) (Primary Dx); Pain of plantar aspect of heel; Acute back pain with sciatica, unspecified laterality; Impaired fasting glucose; Psoriasis; Vitamin D deficiency; Encounter for immunization Social History Tobacco Use Types Packs/Day Years Used Date Smoking Tobacco: Every Day Cigarettes Passive Smoke Exposure: Past Smokeless Tobacco: Never Alcohol Use Standard Drinks/Week Comments Never 0 (1 standard drink = 0.6 oz pur e alcohol) Alcohol Answer Date Recorded How often do you have a drink containing alcohol ? 0 06/28/2025 Average Number of Drinks Not on file 025 How often do you have six or more drinks on one occasion? 0 06/28/2025 Depression Answer Date Recorded Patient Health Questionnaire-9 Score 5 06/28/2025 Patient Health Questionnaire-9 Score 5 06/28/2025 Last PHQ-9: Questionnaire Data Not on file 1 08/29/2024 Housing Stability Answer Date Recorded What is [...] Answer Date Recorded Patient Health Questionnaire-2 Score 3 06/28/2025 Internet Access Answer Date Recorded Internet Access Q1 Yes 04/07/2025 Internet Access Q2 I cannot afford it 04/07/2025 Sex and Gender Information Value Date Recorded Sex Assigned at Male 05/26/2022 10:15 AM EDT Legal Sex Male 10:15 AM EDT Gender Identity Male 05/26/2022 10:15 AM EDT Sexual Orientation Choose not to disclose 2021 10:15 AM EDT documented as of this encounter Last Filed Vital Signs Vital Sign Reading Time Taken Comments Blood Pressure 122/68 06/28/2025 10:19 AM EST Pulse 81 06/28/2025 10:19 AM EST Temperature 36.1 C (97 F) 06/28/2025 10:19 AM EST Respiratory Rate 18 06/28/2025 10:19 AM EST Oxygen Saturation 97% 06/28/2025 10:19 AM EST Inhaled Oxygen Concentration - - Weight 76.2 kg (168 lb) 06/28/2025 10:19 AM EST Height 176 cm (5' 9.29 ) 06/28/2025 10:19 AM EST Body Mass Index 24.6 06/28/2025 10:19 AM EST documented in this encounter Functional Status * Over the past 2 weeks, how often have you been bothered by any of the following problems? Question Answer Date of Assessment Author Patient Health Questionnaire -2 Score 3 06/28/2025 10:22 AM EST Radha Simon MA * Little interest or pleasure in doing things Answer Date of Assessment Author Several days 06/28/2025 10:22 AM EST Radha Simon MA * Feeling down, depressed, or hopeless Answer Date of Assessment Author More than half the days 06/28/2025 10:22 AM EST Radha Simon MA * Trouble falling or staying asleep, or sleeping too much Answer Date of Assessment Author Not at all 06/28/2025 10:22 AM Radha Kraft [place] * Feeling tired or having little energy Answer Date of Assessment Author Several days 06/28/2025 10:22 AM Radha Kraft [place] * Poor appetite or overeating Answer Date of Assessment Author Not at all 06/28/2025 10:22 AM Radha Kraft [place] * Feeling bad about yourself - or that you are a failure or have let yourself or your family down Answer Date of Assessment Author Not at all 06/28/2025 10:22 AM Radha Kraft MA * Trouble concentrating on things, such as reading the newspaper or watching television Answer Date of Assessment Author Not at all 06/28/2025 10:22 AM Radha Kraft [place] * Moving or speaking so slowly that other people could have noticed? Or the opposite - being so fidgety or restless that you have been moving around a lot more than usual. Answer Date of Assessment Author Several days 06/28/2025 10:22 AM Radha Kraft MA * Thoughts that you would be better off or hurting yourself in some way Answer Date of Assessment Author Not at all 06/28/2025 10:22 AM Radha Kraft MA * Patient Health Questionnaire-9 Score Answer Date of Assessment Author 5 06/28/2025 10:22 AM Radha Kraft MA * How difficult have these problems made it for you to do your work, take care of things at home, or get along with other people? Answer Date of Assessment Author Not difficult at all 06/28/2025 10:22 AM EST Radha Angeles MA documented as of this encounter Miscellaneous Notes * Patient Education Note - Ruth Ann Mcgill MD - 06/28/2025 4:02 PM EST Images from the original note were not included. Patient Education Table of Contents Prediabetes: Plan de alimentaci?n (Prediabetes: Eating Plan) To view videos and all your education online visit, [email or web address] or scan this QR code with your smartphone. Access to this content will in one year. Prediabetes: Plan de alimentaci?n Prediabetes: Eating Plan La prediabetes es cuando los niveles de az?car en la deep, tambi?n llamada glucosa, son m?s altosde lo normal. [place] puede ponerlo en riesgo de desarrollar diabetes tipo?2. Cuando tiene prediabetes, hacer cambios saludables puede ayudar a evitar que desarrolle diabetes. [place] incluye hacer cambios en la dieta. Trabaje con cordon m?dico o con un experto en alimentaci?n saludable llamado nutricionista. Ellos pueden ayudarlo a crear un plan de alimentaci?n saludable. Lin plan puede ser de ayuda para: Controlar los niveles de az?car en la deep. Mejorar los niveles de colesterol. Controlar la presi?n arterial. ?Consejos para seguir lin plan? Regla las etiquetas de los alimentos Regla las etiquetas de los alimentos envasados para controlar la cantidad de grasa y az?car que contienen. Evite los alimentos que contengan lo siguiente: ? Grasas saturadas. ? Grasas trans. ? Az?cares agregados. Revise la cantidad de rose marie (sodio) en las etiquetas de los alimentos. ? Evite los alimentos que contengan m?s de 300?miligramos?(mg) de rose marie por porci?n. ? Limite el consumo de rose marie a menos de 2,300?mg por d?a. Al ir de compras Evite comprar alimentos procesados y preelaborados. Evite comprar bebidas con az?car agregada. Al cocinar Cocine con aceite de sams. No use: ? Mantequilla. ? [place] de cerdo. ? Mantequilla clarificada. Cocine los alimentos al horno, a la radha, asados, al vapor o hervidos. Evite bruce?rlos. Planificaci?n de las comidas Trabaje con el nutricionista para crear un plan de alimentaci?n que sea adecuado para usted. [place] puede incluir el seguimiento de cu?ntas calor?as ingiere al d?a. Use un registro de alimentos, un cuaderno o jose juan aplicaci?n m?sumla para anotar lo que comi?? en cada comida. Considere la posibilidad de seguir jose juan dieta mediterr?savita. [place] incluye: ? [place] muchas porciones de frutas y verduras frescas por d?a. ? Pescado al menos dos veces por semana. ? [place] jose juan porci?n de cereales integrales, frijoles, david secos y semillas por d?a. ? Aceite de sams en lugar de otras grasas. ? Limitar el consumo de alcohol. ? Limitar la carne marcos. ? Usar productos l?cteos descremados o con bajo contenido de grasa. Considere seguir jose juan dieta a base de vegetales. [place] significa comer principalmente: ? Verduras y frutas. ? Granos. ? Frijoles. ? David secos y semillas. Si tiene hipertensi?n arterial, quiz?s deba limitar el consumo de rose marie o seguir jose juan dieta eladio el plan de alimentaci?n de Enfoques Alimentarios para Detener la Hipertensi?n (Dietary Approaches to StopHypertension, DASH). El plan de alimentaci?n DASH puede ayudar a disminuir la presi?n arterial luis eduardo. Estilo de sagar Establezca metas para bajar de peso con la ayuda de cordon equipo de atenci?n m?dica. Bajar el 7?% del peso corporal es un buen objetivo para la mayor?a de las personas con prediabetes. Jason al menos 30?minutos de ejercicio, 5?o m?s d?as a la semana. Para obtener apoyo, piense en unirse a un kumar de apoyo o hablar con un consejero de aristeo mental. Santel los medicamentos ?nicamente eladio se lo hayan indicado. ?Qu?? alimentos se recomiendan? Frutas Bayas. Bananas. Manzanas. Naranjas. Uvas. Papaya. Branden. Kathleen. Kiwi. Pomelo. Cerezas. Verduras Jessica. Espinaca. Guisantes. Remolachas. Coliflor. Repollo. Br?coli. Zanahorias. Tomates. Calabaza. Berenjena. Hierbas. Pimientos. Cebollas. Pepinos. Granville de Bruselas. Granos Cereales integrales, eladio anderson o pasta de dinesh integral o de otros cereales integrales. Kerry sin az?car. Dinesh burgol. Cebada. Quinua. Arroz integral. Tacos o tortillas de harina de ma?z o de salvado. Amber y otras prote?lawrence David de mar. Carne de ave sin piel. Grossman magros de cerdo y carne de res. Tofu. Huevos. David secos. Frijoles. L?cteos Productos l?cteos descremados o semidescremados, eladio yogur, queso cottage y queso. Bebidas Agua. T?. Caf?. Gaseosas sin az?car o diet?aiyana. Soda. Leche descremada o con bajo contenido de grasa. Productos alternativos a la leche, eladio leche de soja o de almendras. Grasas y aceites Aceite de sams. Aceite de canola. Aceite de girasol. Aceite de semillas de uva. Aguacate. Bartholomew. Dulces y postres Pudin sin az?car o con bajo contenido de grasa. Helado y otros postres congelados sin az?car o con bajo contenido de grasa. Ali?os y condimentos Hierbas. Especias sin rose marie. Mostaza. Salsa de pepinillos. K?tchup con bajo contenido de rose marie y de az?car. Salsa barbacoa con bajo contenido de rose marie y de az?car. Mayonesa con bajo contenido de grasa o sin grasa. Es posible que los productos que se enumeran m?s arriba no bhavin todos los alimentos y las bebidas que puede consumir. Consulte a cordon nutricionista para obtener m?s informaci?n. ?Qu?? alimentos no se recomiendan? Frutas Frutas enlatadas al maia?bar. Verduras Verduras enlatadas. Verduras congeladas con mantequilla o salsa de crema. Granos Productos elaborados con harina y harina ray refinada, eladio panes, pastas, bocadillos y cereales. Amber y otras prote?lawrence Grossman de carne con alto contenido de grasa. Carne de ave con piel. Carne empanizada o frita. Amber procesadas. L?cteos Yogur, queso o leche enteros. Bebidas Bebidas azucaradas, eladio t?? helado y gaseosas. Grasas y aceites Mantequilla. [place] de cerdo. Mantequilla clarificada. Dulces y postres Productos horneados, eladio pasteles, pastelillos, reposter?a, galletas dulces y tarta de queso. Ali?os y condimentos Mezclas de especias con rose marie agregada. K?tchup. Salsa barbacoa. Mayonesa. Es posible que los productos que se enumeran m?s arriba no bhavin todos los alimentos y las bebidas que debe evitar. Consulte a cordon nutricionista para obtener m?s informaci?n. D?nde obtener m?s informaci?n British Diabetes Association (Asociaci?n Estadounidense de la Diabetes): diabetes.[email or web address]/food-nutrition Esta informaci?n no tiene eladio fin reemplazar el consejo del m?dico. Aseg?rese de hacerle al m?dicocualquier pregunta que tenga. Document Released: 2016-04-02 Document Updated: 2024-03-17 Document Reviewed: 2024-03-17 [employer] Patient Education ? 2024 [employer]. * Patient Education Note - Ruth Ann Mcgill MD - 06/28/2025 4:01 PM EST Images from the original note were not included. Patient Education Table of Contents Rehabilitaci?n para la ci?corrine ([facility]) To view videos and all your education online visit, [email or web address] or scan this QR code with your smartphone. Access to this content will in one year. Rehabilitaci?n para la ci?corrine [facility] Aseg?rese de comprender c?mo hacer los ejercicios de manera shepherd. Siga los pasos que se describena continuaci?n. Es normal que sienta molestias leves. Det?ngase si siente dolor o si el dolor empeora. No comience estos ejercicios hasta que el m?dico se lo indique. El m?dico le indicar?? cu?ntas veces debe realizar estos ejercicios por d?a. Ejercicios de elongaci?n y amplitud de movimiento Estos ejercicios calientan los m?sculos y las articulaciones, y mejoran el movimiento y la flexibilidad de la cadera y la espalda. Estos ejercicios tambi?n ayudan a aliviar el dolor, el adormecimiento y el hormigueo. Deslizamiento del nervio ci?mi 1. Si?ntese en jose juan silla con la beatriz hacia abajo en direcci?n al pecho. Coloque las ivonne detr?s de la espalda. Deje caer los hombros hacia adelante. Extienda lentamente jose juan de las piernas mientras inclina la beatriz hacia atr?s eladio si estuviera mirando hacia el techo. Solo extienda la pierna phelps lejos eladio pueda sin empeorar los s?ntomas. Mantenga esta posici?n carmine el tiempo que le hayan indicado. Regrese lentamente la pierna y la beatriz a la posici?n inicial. Repita el ejercicio con la otra pierna. Rodilla al pecho con aducci?n de cadera y rotaci?n interna 1. Acu?stese boca arriba en jose juan superficie firme con las piernas extendidas. Flexione jose juan rodilla y ll?garay hacia el pecho hasta que sienta un estiramiento suave en la parte inferior de la espalda y las nalgas. A continuaci?n, mueva la rodilla hacia el hombro que est?? en el lado contrario de la pierna. [place] se denomina rotaci?n interna y aducci?n de la cadera. Mantenga la pierna en esta posici?n tomando la parte frontal de la rodilla. Mantenga esta posici?n carmine el tiempo que le hayan indicado. Vuelva lentamente a la posici?n inicial. Repita el ejercicio con la otra pierna. Extensi?n sobre los codos, en dec?bito prono 1. Acu?stese boca abajo sobre jose juan superficie firme. La cama puede ser demasiado blanda para lin ejercicio. Ap?yese sobre los codos. Con los brazos, ay?dese a levantar el pecho hasta sentir un leve estiramiento en el abdomen y la parte inferior de la espalda. [place] colocar?? algo de peso corporal sobre los codos. Si no se siente c?modo, intente colocando almohadas debajo del pecho. Debe dejar la cadera inm?sulma sobre la superficie en la que est?? apoyado. Mantenga la cadera y los m?sculos de la espalda relajados. Mantenga esta posici?n carmine el tiempo que le hayan indicado. Afloje lentamente la parte superior del cuerpo y vuelva a la posici?n inicial. Ejercicios de fortalecimiento Estos ejercicios fortalecen la espalda y le otorgan resistencia. La resistencia es la capacidad de usar los m?sculos carmine un tiempo prolongado, incluso despu?s de que se cansen. Inclinaci?n de la pelvis Lin ejercicio fortalece los m?sculos que se encuentran en la parte profunda del abdomen. 1. Acu?stese boca arriba sobre jose juan superficie firme. Doble las rodillas y mantenga los pies planos en el piso. Tensione los m?sculos abdominales. Eleve la pelvis hacia el techo y aplane la parte inferior de la espalda contra la superficie firme. Para realizar lin ejercicio, puede colocar jose juan toalla tisha?a debajo de la parte inferior de la espalda y presionar la espalda contra la toalla. Mantenga esta posici?n carmine el tiempo que le hayan indicado. Relaje totalmente los m?sculos antes de repetir el ejercicio. Elevaciones alternadas de pierna y brazo 1. Apoye las tony de las ivonne y las rodillas sobre jose juan superficie firme. Si est?? sobre un sueloduro, puede usar un elemento acolchado, eladio jose juan alfombrilla para ejercicios, para apoyar las rodillas. Alinee los brazos y las piernas. Las ivonne deben estar rian debajo de los hombros, y las rodillas debajo de la cadera. Eleve la pierna izquierda hacia atr?s. Al mismo tiempo, eleve el brazo derecho y est?relo frente a usted. No eleve la pierna por encima de la cadera. No eleve el brazo por encima del hombro. Mantenga los m?sculos del abdomen y de la espalda contra?dos. Mantenga la cadera mirando hacia el suelo. No arquee la espalda. Mantenga el equilibrio con cuidado y no contenga la respiraci?n. Mantenga esta posici?n carmine el tiempo que le hayan indicado. Vuelva lentamente a la posici?n inicial. Repita con cordon pierna derecha y cordon brazo neno. Postura y mec?corwin corporal La buena postura y la mec?corwin corporal saludable pueden ayudar a aliviar el estr?s en las articulaciones y los tejidos del cuerpo. La mec?corwin corporal se refiere a los movimientos y a las posiciones del cuerpo mientras realiza las actividades diarias. La postura es jose juan parte de la mec?corwin corporal. Jose Juan buena postura significa que: La columna est?? en cordon posici?n natural de curvatura en S (neutral). Los hombros est?n ligeramente hacia atr?s. La beatriz no est?? inclinada hacia adelante. Siga esas pautas para mejorar la postura y la mec?corwin corporal en dany actividades diarias. De pie Al estar de pie, mantenga la columna en la posici?n neutral y los pies separados al ancho de caderas, aproximadamente. Mantenga las rodillas ligeramente flexionadas. Las orejas, los hombros y las caderas deben estar alineados. Cuando realice jose juan tarea en la que deba estar de pie en el mismo sitio carmine mucho tiempo, coloque un pie en un objeto estable de 2 a 4?pulgadas (5?a 10?CM) de alto, eladio un taburete. [place] ayuda a que la columna mantenga jose juan posici?n neutral. Sentado Cuando est?? sentado, mantenga la columna en posici?n neutral y deje los pies apoyados en el suelo.Use un apoyapi?s, si es necesario, y mantenga los muslos paralelos al suelo. Evite redondear los hombros e inclinar la beatriz hacia adelante. Cuando trabaje en un escritorio o con jose juan computadora, el escritorio debe estar a jose juan altura en la que las ivonne est?n un poco m?s abajo que los codos. Deslice la silla debajo del escritorio, de modode estar lo suficientemente cerca eladio para mantener jose juan buena postura. Cuando trabaje con jose juan computadora, coloque el monitor a jose juan altura que le permita mirar derecho hacia adelante, sin tener que inclinar la beatriz hacia adelante o hacia atr?s. Reposo Al descansar o estar acostado, evite las posiciones que le causen m?s dolor. Si siente dolor al hacer actividades que exigen sentarse, inclinarse, agacharse o ponerse en cuclillas, acu?stese en jose juan posici?n en la que el cuerpo no deba doblarse mucho. Por ejemplo, evite acurrucarse de costado con los brazos y las rodillas cerca del pecho (posici?n ). Si siente dolor con las actividades que exigen estar de pie carmine mucho tiempo o estirar los brazos, acu?stese con la columna en jose juan posici?n neutral y flexione ligeramente las rodillas. Pruebe conlas siguientes posiciones: ? Acostarse de costado con jose juan almohada entre las rodillas. ? Acostarse boca arriba con jose juan almohada debajo de las rodillas. Levantar objetos Cuando tenga que levantar un objeto, mantenga los pies separados el ancho de los hombros, eladio m?subhash, y apriete los m?sculos abdominales. Flexione las rodillas y la cadera, y mantenga la columna en posici?n neutral. Es importante levantarse utilizando la fuerza de las piernas, no de la espalda. No trabe las rodillas hacia afuera. Siempre pida ayuda a otra persona para levantar objetos pesados o inc?modos. Esta informaci?n no tiene eladio fin reemplazar el consejo del m?dico. Aseg?rese de hacerle al m?dicocualquier pregunta que tenga. Document Released: 2010-07-01 Document Updated: 2025-03-02 Document Reviewed: 2025-03-02 Elsevier Patient Education ? 2024 [employer] documented in this encounter Plan of Treatment Upcoming Encounters Date Type Department Care Team (Late st Contact Info) Description 09/13/2025 10:00 AM EST Office Visit [facility] MED[facility] [address] [place] [address] Ruth Ann Mcgill MD [address] [place] [address] documented as of this encounter Procedures Procedure Name Priority Date/Time Associated Diagnosis Comments POCT GLYCATED HEMOGLOBIN, TOTAL Routine 06/28/2025 11:05 AM EST Impaired fasting glucose POCT GLUCOSE Routine 06/28/2025 11:03 AM EST Impaired fasting glucose POCT HEMOGLOBIN Routine 06/28/2025 11:03 AM EST Vitamin D deficiency documented in this encounter Results * POCT Hgb A1c (06/28/2025 11:05 AM EST) Hemoglobin A1C 5.5 4.0 - 5.7 % QC Media Lot # [id number] Lot# Expiration Date , Blood 06/28/2025 11:0 5 AM EST Ruth Ann Mcgill MD POINT OF CARE TEST ENTER /EDIT ORDERABLES Final Result * POCT Hemoglobin (06/28/2025 11:03 AM EST) Hemoglobin 16.5 13.0 - 17.0 QC Media Lot # [id number] Lot# Expiration Date 4242,[id number] Blood 06/28/2025 11:0 3 AM EST Ruth Ann Mcgill MD POINT OF CARE TEST ENTER /EDIT ORDERABLES Final Result * POCT Glucose (06/28/2025 11:03 AM EST) Glucose Blood, POC 108 60 - 200 mg/dL QC Media Lot # [id number] Lot# Expiration Date 7,[id number] Blood Capillary blood specimen / Unknown 06/28/2025 11:03 AM EST Ruth Ann Mcgill MD POINT OF CARE TEST ENTER /EDIT ORDERABLES Final Result documented in this encounter Visit Diagnoses Diagnosis Major depressive disorder with psychotic features (CMS/HCC) (HCC)- Primary Pain of plantar aspect of heel Acute back pain with sciatica, unspecified laterality Impaired fasting glucose Psoriasis Other psoriasis Vitamin D deficiency Encounter for immunization documented in this encounter Additional Health Concerns Assessment Noted Time PHQ-9 Depression Total Score: 5 06/28/20 25 10:22 AM EST documented as of this encounter Care Teams Jeweler Apprentice Relationship Specialty Start Date End Date Ruth Ann Mcgill MD [address] [place] [id number] PCP - General Family Medicine 07/02/16 documented as of this encounter
--- OUTSIDE RECORDS SUMMARY | 2025-06-28 13:29 | XMS_ITS | Clinical Summary ---
Author Organization [employer] Address [address] [place] [address] 7[address] [place] [address] Care Team Providers Care Forensic Engineer Name Role Phone Ruth Ann Mcgill [...] day pm pain 30 tablet 025 Active calcipotriene (Dovonex) 0.005 % creamIndicati ons:Psoriasis Apply topically 2 times daily. 60 g 1 025 Active halobetasol (UltraVATE) 0.05 % creamIndicati ons:Psoriasis Apply topically 2 times daily. 50 g 025 Active ustekinumab (Stelara) 45 MG/0.5ML injectionIndi cations:Psori asis 45 mg at 0 and 4 weeks, and then 45 mg every 12 weeks thereafter 0.5 mL 025 Active halobetasol (UltraVATE) 0.05 % ointmentIndic ations:Psoria sis Apply topically 2 times daily. 50 g 1 025 2024 Discontinued calcipotriene (Dovonex) 0.005 % creamIndicati ons:Psoriasis Apply topically 2 times daily. 60 g 1 025 2024 Discontinued(R eorder (will not trigger notification to Pharmacy)) Active Problems Problem Noted Date Diagnosed Date Pain of plantar aspect of heel 04/14/2025 Assessment & Plan (04/14/2025 5:46 PM EDT): Will order x-ray to rule out osteophytes, refer to inspector soldering Major depressive disorder with psychotic feature s ([facility]) 07/06/2024 Assessment & Plan (01/04/2025 3:43 PM [...] HIV pre-exposure prophylaxis 07/06 Assessment & Plan (04/14/2025 5:26 PM EDT): Patient reportedly on a stable monogamous relationship, interested in PrEP. Reminded about use of condoms to prevent STIs, he will get STI testing and follow-up with me in 4 to 6 weeks to start on PrEP Assessment & Plan (01/04/2025 3:42 PM EDT): [...] safe at home. Eye exam Refer to [facility] screen Up To Date, needs f/u colonoscopy Lipids/FBS Up To Date, next one due May 2024 Vaccinations Decline COVID immunization, agreed to PCV 20 today Dental visit [facility]ler to make appt in our dental clinic [...] I told him to buy food on [employer] etc. Will refer to solar applications development engineer. Acute ankle pain 06/12/2022 Acute back pain with sciatica 06/12/2022 Assessment & Plan (04/14/2025 5:48 PM EDT): He did PT previously, he will continue PT at home, advised to use naproxen up to 500 mg twice daily and Flexeril nightly, use diclofenac gel as needed If symptoms do not improve, he will need pain clinic referral, will order x-ray of the foot to rule out other foot pathologies Advised to avoid heavy weight use, especially the steel toed boots for work. Advised to wear shoes with good plantar and back support Follow-up with me in 4 to 6 weeks Anxiety about health 06/12/2022 Chronic right shoulder pain 06/12/2022 Hip pain 06/12/2022 Immunosuppression 06/12/2022 Assessment & Plan (01/04/2025 3:43 PM EDT): He is on Cosentyx, doing well, no recurrent infections or OIs. Assessment & Plan (07/06/2024 11:50 AM EST): He is on Cosentyx, doing well. Immunization as advised above. Paresthesia 06/12/2022 Tubular adenoma of colon 06/12/2022 Overview (04/05/2024): [place]18[place] 2 Assessment & Plan (01/21/2024 [...] pain 09/09/2018 Pure hypercholesterolemia 09/09/2018 Hyperlipidemia 09/13/2013 Assessment & Plan (04/14/2025 5:22 PM EDT): He is not taking any medication, he is overdue for lipids. Advised him to get labs done at the least convenience, if LDL continues to be significantly elevated, we will repeat a fasting lab prior to next appointment before we decide on start medications. Impaired fasting glucose 09/13/2013 Assessment & Plan [...] 3-4 months. Diverticular disease 09/07/2013 Psoriasis 09/07/2013 Assessment & Plan (04/14/2025 5:49 PM EDT): Doing well Cosentyx monthly, will send refill until he sees dermatology I gave him prescription for clobetasol and Temovate cream to use as needed if Cosentyx prescription is not covered, he has suboptimal response to these creams Resolved Problems Problem Noted Date Diagnosed Date [...] him about our confidential STI clinic at [facility] Order STI tests and fu w me in 3-4m Major depressive disorder 09/07/2013 Assessment & Plan (07/06/2023 5:37 PM EST): He has been off medications for about a year He feels well and safe at home Br[facility] Pickler to continue off medications Able to reach [...] Encounters Date Type Department Care Team Description 06/28/2025 10:15 AM EST Office Visit [address] [address] Ruth Ann Mcgill MD Major depressive disorder with psychotic features (CMS/HCC) (HCC) (Primary Dx); Pain of plantar aspect of heel; Acute back pain with sciatica, unspecified laterality; Impaired fasting glucose; Psoriasis; Vitamin D deficiency; Encounter for immunization 06/28/2025 Travel 06/14/2025 Patient Outreach [address] [address] Ruth Ann Mcgill MD Pre-visit Planning (SDOH screening completed on 04/07/2025) 06/09/2025 10:00 AM EST Office Visit [address] [address] Chris Chau MD Psoriasis (Primary Dx) 06/09/[address] [address] Chris Chau MD Prior Authorization (PA: Stela 45 MG) 06/09/2025 Travel 04/20/[address] [address] Ruth Ann Mcgill MD 04/14/2025 11:30 AM EDT Telemedicine [address] [address] Ruth Ann Mcgill MD Psoriasis (Primary Dx); Acute left-sided back pain with sciatica; Pain of plantar aspect of heel; Mixed hyperlipidemia; Encounter for HIV pre-exposure prophylaxis 04/14/2025 Results Follow-Up [address] [place] [address] Ruth Ann Mcgill MD Lipid Panel with Reflex to Direct LDL, Vitamin D, 25-Hydroxy, Total, Immunoassay, TSH with Reflex to Free T4, Additional followed-up results: 2 04/14/2025 Travel 04/13/2025 Telephone [facility] [address] [place] [address] Ruth Ann Mcgill MD Chart Prep 04/10/2025 Telephone [facility] [address] [place] [address] Ruth Ann Mcgill MD Change visit type 04/07/2025 Patient Outreach [facility] [address] [place], [place] [phone] Ruth Ann Mcgill MD Pre-visit Planning (SDOH negative. Tobacco screening positive. ) from Last 3 Months Immunizations Immunization Administration Dates Next Due Hep B, Adolescent or Pediatric 06/14/2018 Hep B, adult 11/11/2018,10/14/2018 Influenza Injectable Quadriv alant Preservative Free IIV4 MDCK 04/14/2023 Influenza injectable quadriv alent IIV4 with preservative 07/02/2017 Influenza injectable quadriv alent preservative free 06/25/2021,04/27/2020,08/19/2019 Influenza, IIV3, injectable 04/28/2014 Influenza, Split (incl. fei fied surface antigen) 09/09/2013 Influenza, seasonal, injecta ble, preservative free 06/28/2025,07/06/2024 Pfizer Covid-19 Vaccine 12+ 05/29/2021, Pneumococcal Conjugate PCV 20 07/06/2024 Pneumococcal Polysaccharide PPSV23 09/09/2013 Tdap 06/28/2025,11/17/2013 Zoster, Recombinant 03/19/2021,01/15/2021 Zoster, live 03/08/2019 Social [...] Mass Index 24.6 06/28/2025 10:19 AM EST Plan of Treatment Upcoming Encounters Date Type Department Care Team (Late st Contact Info) Description 09/13/2025 10:00 AM EST Office Visit [facility] [address] [place] [address] Ruth Ann Mcgill MD [address] [place], [place] [phone] Health Maintenance Due Date Last Done Comments CT Colonography 1968 FIT DNA/Cologuard 1970 FIT 1970 FOBT 1970 Sigmoidoscopy 1970 RSV Patients and Patients Aged 60 years or older (1 - Risk 50-74 years 1-dose series) 02/03/2018 Hepatitis B Vaccines (3 of 3 - 19+ 3-dose series) 04/16/2019 11/11/2018, 10/14/2018, 06/14/2018 COVID-19 Vaccine (3 - Pfizer risk series) 06/26/2021 05/29/2021, 05/08/2021 SDOH Screening 04/07/2026 04/07/2025 Alcohol/Substance Use Screening 06/28/2026 06/28/2025 Depression Screening 06/28/2026 06/28/2025, 06/28/20 25 Disability Screening 06/28/2026 06/28/2025 Tobacco Screening 06/28/2026 06/28/2025 Colonoscopy 03/18/2027 03/18/2024 Colorectal Cancer Screening 03/18/2027 Lipid Panel 04/14/2030 04/14/2025, 07/18/2020 DTaP/Tdap/Td Vaccines (3 - Td or Tdap) 06/28/2035 06/28/2025, 11/17/2013 Zoster Vaccines Completed 03/19/2021, 12/26, 03/08/2019 Pneumococcal Vaccine: 50+ Years Completed 07/06/2024, 09/09/2013 HIV Screening Completed 04/14/2025, 06/15/2023 Hepatitis C Screening Completed 04/14/2025 Influenza Vaccine Completed 06/28/2025, , 04/14/2023, Additional history exists HIB Vaccines Aged Out No longer eligi [...] 11:05 AM EST Impaired fasting glucose POCT HEMOGLOBIN Routine 06/28/2025 11:03 AM EST Vitamin D deficiency POCT GLUCOSE Routine 06/28/2025 11:03 AM EST Impaired fasting glucose XR FOOT 3+ VIEWS RIGHT Routine 1:50 PM EDT Pain of plantar aspect of heel XR FOOT 3+ VIEWS LEFT Routine 04/14/2025 1:50 PM EDT Acute left-sided back pain with sciatica HEPATITIS PANEL, GENERAL Routine 04/14/2025 1:28 PM EDT Encounter for preventive health examination HIV 1/2 ANTIGEN/ANTIBODY, FOURTH GENERATION W/RFL Routine 04/14/2025 1:28 PM EDT Encounter for preventive health examination SYPHILIS SCREEN Routine 04/14/2025 1:28 PM EDT Encounter for preventive health examination CBC WITH AUTO DIFFERENTIAL Routine 04/14/2025 1:28 PM EDT Major depressive disorder with psychotic features (CMS/HCC) COMPREHENSIVE METABOLIC PANEL Routine 04/14/2025 1:28 PM EDT Major depressive disorder with psychotic features (CMS/HCC) TSH W/REFLEX TO FT4 Routine 04/14/2025 1 :28 PM EDT Major depressive disorder with psychotic features (CMS/HCC) VITAMIN D,25-OH,TOTAL,IA Routine 04/14/2025 1:28 PM EDT Major depressive disorder with psychotic features (CMS/HCC) Recurrent major depressive disorder, in partial remission (CMS/HCC) T-SPOT(R).TB Routine 04/14/2025 1:28 PM EDT Encounter for preventive health examination LIPID PANEL WITH REFLEX TO DIRECT LDL Routine 04/14/2025 1:28 PM EDT Encounter for preventive health examination HM COLONOSCOPY Routine 03/18/2024 from Last 3 Months or Most Recently Relevant to Health Maintenance Results * POCT Hgb A1c (06/28/2025 11:05 AM EST) Hemoglobin A1C 5.5 4.0 - 5.7 % QC Media Lot # [id number] Lot# Expiration Date 525, Blood 06/28/2025 11:0 5 AM EST Ruth Ann Mcgill MD POINT OF CARE TEST ENTER /EDIT ORDERABLES Final Result * POCT Glucose (06/28/2025 11:03 AM EST) Glucose Blood, POC 108 60 - 200 mg/dL QC Media Lot # [id number] Lot# Expiration Date [id number] Blood Capillary blood specimen / Unknown 06/28/2025 11:03 AM EST Ruth Ann Mcgill MD POINT OF CARE TEST ENTER /EDIT ORDERABLES Final Result * POCT Hemoglobin (06/28/2025 11:03 AM EST) Hemoglobin 16.5 13.0 - 17.0 QC Media Lot # [id number] Lot# Expiration Date [id number] Blood 06/28/2025 11:0 3 AM EST Ruth Ann Mcgill MD POINT OF CARE TEST ENTER /EDIT ORDERABLES Final Result * XR Foot 3+ Views Right (04/14/2025 1:50 PM EDT) Anatomical Region Laterality Modality Lower Extremities, Foot Right Radiogra phic Imaging 04/14/2025 1:50 PM EDT Narrative 04/14/2025 2:15 PM EDT [place] [address] XRay Report Signed Patient: Jacobo Diaz MR#: [id number] : 1970 Acct:[id number] Age/Sex: 55 / M ADM Date: 04/14/25 Loc: HO.[facility] Attending Dr: Ruth Ann Mcgill MD Ordering Physician: Ruth Ann Mcgill MD Date of Service: 04/14/25 Procedure(s): XR foot RT min 3V Accession Number(s): [id number] cc: Ruth Ann Mcgill MD Reason for Exam: plantar pain EXAMINATION: XR FOOT, RIGHT CLINICAL INFORMATION: plantar pain COMPARISON: None available. TECHNIQUE: AP, lateral, and oblique views of the right foot. FINDINGS: There is no fracture, dislocation, or suspicious bony lesion. There is normal alignment. Joint spaces are preserved. There is a tiny plantar calcaneal spur. Normal plantar arch. There is no soft tissue abnormality. XR/XR foot RT min 3V IMPRESSION: No acute bony or soft tissue abnormalities of the right foot. Electronically signed by: Rivera Wayne MD 04/14/2025 02:13 PM EDT RP Dictated By: Rivera Wayne MD Signed By: <Electronically signed by Rivera Wayne MD in OV> 04/14/25 141 DD/ 135 TD/TT: 04/14/25 135 Trial Consultant: Procedure Note Donotalishainterpreter, Image - 04/14/[address] [address] XRay Report Signed Patient: Jacobo DiazMR#: [id number] : 1970Acct:[id number] Age/Sex: 55 / MADM Date: 04/14/25 Loc: .[facility] Attending Dr: Ruth Ann Mcgill MD Ordering Physician: Ruth Ann Mcgill MD Date of Service: 04/14/25 Procedure(s): XR foot RT min 3V Accession Number(s): [id number] cc: Ruth Ann Mcgill MD Reason for Exam: plantar pain EXAMINATION: XR FOOT, RIGHT CLINICAL INFORMATION: plantar pain COMPARISON: None available. TECHNIQUE: AP, lateral, and oblique views of the right foot. FINDINGS: There is no fracture, dislocation, or suspicious bony lesion. There is normal alignment. Joint spaces are preserved. There is a tiny plantar calcaneal spur. Normal plantar arch. There is no soft tissue abnormality. XR/XR foot RT min 3V IMPRESSION: No acute bony or soft tissue abnormalities of the right foot. Electronically signed by: Rivera Wayne MD 04/14/2025 02:13 PM EDT RP Dictated By: Rivera Wayne MD Signed By: <Electronically signed by Rivera Wayne MD in OV> 04/14/25 1413 DD/ 135 TD/TT: 04/14/25 135 Trial Consultant: Ruth Ann Mcgill MD IMG XR PROCEDURES Edited Result - Final * XR Foot 3+ Views Left (04/14/2025 1:50 PM EDT) Anatomical Region Laterality Modality Lower Extremities, Foot Left Radiogra phic Imaging 04/14/2025 1:50 PM EDT Narrative 04/14/2025 2:14 PM EDT [address] [address] XRay Report Signed Patient: Jacobo Diaz MR#: [id number] : 1970 Acct:[id number] Age/Sex: 55 / M ADM Date: 04/14/25 Loc: [facility] Attending Dr: Ruth Ann Mcgill MD Ordering Physician: Ruth Ann Mcgill MD Date of Service: 04/14/25 Procedure(s): XR foot LT min 3V Accession Number(s): [id number] cc: Ruth Ann Mcgill MD Reason for Exam: LBP/sciatica EXAMINATION: XR FOOT, LEFT CLINICAL INFORMATION: Plantar pain. COMPARISON: None available. TECHNIQUE: AP, lateral, and oblique views of the left foot. FINDINGS: There is no fracture, dislocation, or suspicious bony lesion. There is normal alignment. Joint spaces are preserved. There is a small plantar calcaneal spur. Normal plantar arch. There is no soft tissue abnormality. XR/XR foot LT min 3V IMPRESSION: No acute bony or soft tissue abnormalities of the left foot. Electronically signed by: Rivera Wayne MD 04/14/2025 02:11 PM EDT Dictated By: Rivera Wayne MD Signed By: <Electronically signed by Rivera Wayne MD in OV> 04/14/25 1411 DD/ 1350 TD/TT: 04/14/25 1351 Trial Consultant: Procedure Note Donotuseinterpreter, Image - 04/14/[address] [address] XRay Report Signed Patient: Jacobo DiazMR#: [id number] : 1970Acct:[id number] Age/Sex: 55 / MADM Date: 04/14/25 Loc: [facility] Attending Dr: Ruth Ann Mcgill MD Ordering Physician: Ruth Ann Mcgill MD Date of Service: 04/14/25 Procedure(s): XR foot LT min 3V Accession Number(s): [id number] cc: Ruth Ann cMgill MD Reason for Exam: LBP/sciatica EXAMINATION: XR FOOT, LEFT CLINICAL INFORMATION: Plantar pain. COMPARISON: None available. TECHNIQUE: AP, lateral, and oblique views of the left foot. FINDINGS: There is no fracture, dislocation, or suspicious bony lesion. There is normal alignment. Joint spaces are preserved. There is a small plantar calcaneal spur. Normal plantar arch. There is no soft tissue abnormality. XR/XR foot LT min 3V IMPRESSION: No acute bony or soft tissue abnormalities of the left foot. Electronically signed by: Rivera Wayne MD 04/14/2025 02:11 PM EDT RP Dictated By: Rivera Wayne MD Signed By: <Electronically signed by Rivera Wayne MD in OV> 04/14/25 1411 DD/ 1350 TD/TT: 04/14/25 1351 Trial Consultant: us Ruth Ann Mcgill MD IMG XR PROCEDURES Edited Result - Final * Syphilis Screen (04/14/2025 1:28 PM EDT) Pathologist [facility] Syphilis Screen Nonreactive Nonreactive [facility] Blood 04/14/2025 1:28 PM EDT 04/14/2025 4:11 PM EDT us Ruth Ann Mcgill MD LAB BLOOD ORDERABLES Fin al Result [facility] [address] [place] [phone] * (ABNORMAL) Vitamin D, 25-Hydroxy, Total, Immunoassay (04/14/2025 1:28 PM EDT) Vitamin D 25-OH Total 22.3(L) >30 ng/mL [facility] Comment: Health Based Reference Values*< 20 ng/mL Omzakcoau44-72 ng/mL Insufficient> 30 ng/mL Sufficient*Andrew BARROW. N Engl J Med. 2007;357:266-280There is no well-established upper level of normal vitamin Dlevels. Some laboratories use 50 ng/mL as an upper limit ofnormal. However, toxicity is patient-dependent and may occurat any level. Careful correlation with the patient'spresentation is necessary and, if there is concern forvitamin D toxicity, treatment should be consideredirrespective of the serum level.Care must be taken in interpreting Vitamin D results fromdifferent laboratories and methodologies. Published datademonstrated that results from patients undergoinghemodialysis may show a negative bias when tested withvarious automated 25-OH vitamin D assays when compared toLC-MS/MS.When testing samples from patients whose predominant form ofVitamin D is Vitamin D2, such as patients receiving VitaminD2 supplementation, results that are subtherapeutic shouldbe confirmed with another method such as LC-MS/MS. Blood 04/14/2025 1:28 PM EDT 04/14/2025 3:59 PM EDT us Ruth Ann Mcgill MD LAB BLOOD ORDERABLES Fin al Result [facility] [address] [place] [phone] * T-SPOT??.TB (04/14/2025 1:28 PM EDT) [facility] T Spot TB Negative Negative [facility] Comment:A negative test resu lt does not exclude the possibilityof exposure to or infection with Mycobacteriumtuberculosis (M. tuberculosis). Patients with recentexposure to TB infected individuals exhibiting anegative T-SPOT.TB result should be considered forretesting within 6 weeks or if other relevant clinicalsymptoms indicate. Results from T-SPOT.TB testing mustbe used in conjunction with each individual'sepidemiological history, current medical status,and results of other diagnostic evaluations.The T-SPOT.TB test is qualitative and results arereported as positive, borderline, or negative, giventhat the test controls perform as expected. In linewith the Centers for Disease Control and Prevention's2010 recommendation to report quantitative measurementsalongside the qualitative result, the laboratoryprovides spot counts for informational purposes only.The T-SPOT.TB test should not be interpreted as aquantitative test. TS PANEL A 0 [facility] TS PANEL B 0 [facility] Negative Control Passed [facility] Positive Control Passed [facility] Comment:For additional infor candy, please refer tohttp://education.[employer]/faq/PHQ930(This link is being provided for informational/educational purposes only.)REPORT COMMENT:REC'D AT [facility] TEST WAS PERFORMED AT:[employer] [id number] [place] [address]IUPORECROLDAN ARIAS MD,PHD 04/14/2025 1:28 PM EDT 04/14/2025 3:59 PM EDT us Ruth Ann Mcgill MD LAB BLOOD ORDERABLES Fin al Result Performing Organization Address City/[facility]/ZIP Co de Phone Number [facility] [address] [place] [phone] * TSH with Reflex to Free T4 (04/14/2025 1:28 PM EDT) TSH reflex Free T4 0.71 0.32 - 4.0 uIU/mL [facility] Blood 04/14/2025 1:28 PM EDT 04/14/2025 3:59 PM EDT us Ruth Ann Mcgill MD LAB BLOOD ORDERABLES Fin al Result Performing Organization Address City/[facility]/ZIP Co de Phone Number [facility] [address] [place] [phone] * (ABNORMAL) Lipid Panel with Reflex to Direct LDL (04/14/2025 1:28 PM EDT) Triglycerides 100 <150 mg/dL [facility] Comment:Desirable Triglyceri de: less than 150 mg/dLBorderline High Triglyceride 150-199 mg/dLHigh Triglyceride: 200-499 mg/dLVery High Triglyceride: greater than or equal to 5OO mg/dL Cholesterol 172 <200 mg/dL [facility] Comment:Desirable Cholestero l: less than 200 mg/dLBorderline High Cholesterol: 200-239 mg/dLHigh Cholesterol: greater than 239 mg/dL LDL Cholesterol Calculated 110(H) <100 mg/dL [facility] Comment:Desirable LDL: less than 100 mg/dLNear Optimal/Above Optimal LDL: 110- 129 mg/dLBorderline High LDL: 130-159 mg/dLHigh LDL: 160-189 mg/dLVery High LDL: greater than or equal to 190 mg/dL HDL Cholesterol 42 >40 mg/dL [facility] Comment:Desirable HDL: great er than 40 mg/dL Note: This HDL assay may give artificially low results in patients with liver disease. Blood 04/14/2025 1:28 PM EDT 04/14/2025 3:59 PM EDT us Ruth Ann Mcgill MD LAB BLOOD ORDERABLES Fin al Result [facility] [address] [place] [phone] * Hepatitis Panel, General (04/14/2025 1:28 PM EDT) Hepatitis A IgM Nonreactive Nonreactive [facility] Comment:IgM antibodies to WILLS V not detected; does not exclude earlyacute or recovered HAV infection. ~Hepatitis B Surface Antibody NONREACTIVE Nonreactive [facility] Comment:Nonreactive: < 8.00 mIU/mL Hepatitis B Core Antibody Nonreactive Nonreactive [facility] Hepatitis C Antibody Nonreactive Nonreactive [facility] Comment:Antibodies to HCV no t detected; does not exclude early acuteHCV infection. Hepatitis B Surface Ag Negative Negative [facility] Blood 04/14/2025 1:28 PM EDT 04/14/2025 4:11 PM EDT us Ruth Ann Mcgill MD LAB BLOOD ORDERABLES Fin al Result [facility] [address] [place], [place] [phone] * (ABNORMAL) CBC auto differential (04/14/2025 1:28 PM EDT) White Blood Count 7.7 4.8 - 10.8 X10*3/uL [facility] Red Blood Count 4.93 4.60 - 5.80 X10*6/uL [facility] Hemoglobin 14.8 14.0 - 18.0 g/dl [facility] Hematocrit 43.5 42.0 - 52.0 % [facility] Mean Corpuscular Volume 88.2 80.0 - 98.0 fL [facility] Mean Corpuscular Hemoglobin 30.0 27.0 - 33.0 pg [facility] Mean Corpuscular HGB Conc 34.0 31.0 - 36.0 g/dl [facility] Red Cell Distribution Width 13.7 11.0 - 16.0 % [facility] Platelet Count 262 160 - 400 X10*3/uL [facility] Mean Platelet Volume 8.8(L) 9.4 - 12.4 fL [facility] Neutrophils Percent Auto 67.5 45 - 73 % [facility] Imm Gran Pct Auto 0.6(H) 0.0 - 0.4 % [facility] Lymphocytes Percent Auto 22.1 20 - 40 % [facility] Monocytes Percent Auto 8.1 2 - 11 % [facility] Eosinophils Percent Auto 0.9 0 - 4 % [facility] Basophils Percent Auto 0.8 0 - 2 % [facility] NRBC Pct Auto 0.0 0.0 - 0.2 /100WBC [facility] Neutrophils Absolute Auto 5.2 2.0 - 8.3 x10*3/uL [facility] Imm Gran Abs Auto 0.05(H) 0.00 - 0.03 X10*3/uL [facility] Lymphocytes Absolute Auto 1.7 1.2 - 4.9 X10*3/uL [facility] Monocytes Absolute Auto 0.6 0.1 - 1.2 X10*3/uL [facility] Eosinophils Absolute Auto 0.1 0.0 - 0.4 X10*3/uL [facility] Basophils Absolute Auto 0.1 0.0 - 0.2 X10*3/uL [facility] NRBC Abs Auto 0.000 0.0 - 0.012 X10*3/uL [facility] Blood Venous blood specimen / Unknown 04/14/2025 1:28 PM EDT 04/14/2025 4:11 PM EDT Ruth Ann Mcgill MD LAB BLOOD ORDERABLES Fin al Result [facility] [address] [place] [phone] * HIV-1/2 Antigen and Antibodies, Fourth Generation, with Reflexes (04/14/2025 1:28 PM EDT) Pathologist [facility] HIV AB/AG Nonreactive Nonreactive [facility] Comment:HIV-1 p24 Ag and/or HIV-1/HIV-2 Ab not detected.A test result that is nonreactive does not exclude thepossibility of exposure to or infection with HIV-1 and/orHIV-2. Nonreactive results in this assay for individualswith prior exposure to HIV-1 and/or HIV-2 may be due toantigen and antibody levels that are below the limit ofdetection of this assay.The [employer] HIV Ag/Ab Combo assay result andsupplemental assay results should be interpreted inconjunction with the patient's clinical presentation,history and other laboratory results. If the results areinconsistent with clinical evidence, additional testing issuggested to confirm the result. Blood Venous blood specimen / Unknown 04/14/2025 1:28 PM EDT 04/14/2025 4:11 PM EDT us Ruth Ann Mcgill MD LAB BLOOD ORDERABLES Fin al Result Performing Organization Address City/[facility]/ZIP Co de Phone Number [facility] [address] [place] [address] [phone] * (ABNORMAL) Comprehensive Metabolic Panel (04/14/2025 1:28 PM EDT) Sodium 139 135 - 145 mmol/L [facility] Potassium 4.0 3.3 - 5.1 mmol/L [facility] Chloride 106 96 - 108 mmol/L [facility] Carbon Dioxide 26 22 - 29 mmol/L [facility] Anion Gap 11(L) 12 - 20 [facility] Urea Nitrogen (BUN) 13 9 - 16 mg/dL [facility] Creatinine, Serum 0.70 0.5 - 1.4 mg/dL [facility] Estimated Glomerular Filt Rate >60 [facility] Comment:Chronic Kidney Disea se: Estimated GFR < 60 mL/min/1.33o7Ymmych Kidney Disease: Estimated GFR < 15 mL/min/1.73m2 Glucose 84 60 - 115 mg/dL [facility] Calcium 9.1 8.4 - 10.2 mg/dL [facility] Bilirubin, Total 0.4 0.0 - 1.0 mg/dL [facility] Aspartate Amino Transferase 29 5 - 37 U/L [facility] Alanine Aminotransferase 22 0 - 40 U/L [facility] Total Protein 7.6 6.5 - 8.0 g/dL [facility] Albumin Level 4.6 3.5 - 5.0 g/dL [facility] Alkaline Phosphatase 87 39 - 117 U/L [facility] Blood Venous blood specimen / Unknown 04/14/2025 1:28 PM EDT 04/14/2025 3:59 PM EDT us Ruth Ann Mcgill MD LAB BLOOD ORDERABLES Fin al Result Performing Organization Address City/[facility]/ZIP Co de Phone Number [facility] [address] [place] [address] [phone] * (ABNORMAL) Colonoscopy (03/18/2024) Colonoscopy Abnormal(A ) Normal Comment:TA Ruth Ann Mcgill MD HEALTH MAINTENANCE Final Result from Last 3 Months or Most Recently Relevant to Health Maintenance Insurance [facility] Care Teams Forensic Engineer Relationship Specialty Start Date End Date Ruth Ann Mcgill MD [address] [place] [phone] PCP - General Family Medicine 07/02/16
--- OUTSIDE RECORDS SUMMARY | 2025-06-28 13:29 | XMS_ITS | Encounter Summary ---
Author Organization [employer] Address [address] [facility] 7t [place] [address] Care Team Providers Care Phone Engineer Name Role Phone Ruth Ann Mcgill MD Primary Care Provider + Encounter Details Date Type Department Care Team (Latest Contact Info) Description 06/28/2025 Travel Social History Tobacco Use Types Packs/Day [...] AM EDT documented as of this encounter Functional Status * Over the past 2 weeks, how often have you been bothered by any of the following problems? Question Answer Date of Assessment Author Patient Health Questionnaire -2 Score 3 06/28/2025 10:22 AM Radha Kraft [place] * Little interest or pleasure in doing things Answer Date of Assessment Author Several days 06/28/2025 10:22 AM Radha Kraft MA * Feeling down, depressed, or hopeless Answer Date of Assessment Author More than half the days 06/28/2025 10:22 AM Radha Kraft MA * Trouble falling or staying asleep, [...] [place] documented as of this encounter Plan of Treatment Upcoming Encounters Date Type Department Care Team (Late st Contact Info) Description 09/13/2025 10:00 AM EST Office Visit [facility] [address] [place] [address] Ruth Ann Mcgill MD [address] [place] [address] documented as of this encounter Visit Diagnoses Not on filedocumented in this encounter Additional Health Concerns Assessment Noted Time PHQ-9 Depression Total Score: 5 06/28/20 25 10:22 AM EST documented as of this encounter Care Teams Phone Engineer Relationship Specialty Start Date End Date Ruth Ann Mcgill MD [address] [place] [address] PCP - General Family Medicine 07/02/16 documented as of this encounter
--- OUTSIDE RECORDS SUMMARY | 2025-06-28 13:30 | XMS_ITS | Encounter Summary ---
Author Organization [employer] [facility] Address [address] [place] [address] 7 [place] [address] Care Team Providers Care Certified Legal Secretary Specialist Name Role Phone Ruth Ann Mcgill MD Primary Care Provider + Encounter Details Date Type Department Care Team (Late st Contact Info) Description 06/09/2022 Abstract [facility] MEDICINE [address] [place] [phone] ProviderAngelica MD Social History Tobacco Use Types Packs/Day Years [...] Description 09/13/2025 10:00 AM EST Office Visit [facility] [address] [place] [phone] Ruth Ann Mcgill MD [address] [place] [address] documented as of this encounter Visit Diagnoses Not on filedocumented in this encounter Care Teams Certified Legal Secretary Specialist Relationship Specialty Start Date End Date Ruth Ann Mcgill MD [address] [place] [phone] PCP - General Family Medicine 07/02/16 documented as of this encounter
--- OUTSIDE RECORDS SUMMARY | 2025-06-28 13:30 | XMS_ITS | Encounter Summary ---
Author Organization [employer] Address [address] [facility] 7t [place] [address] Care Team Providers Care Draw Frame Runner Name Role Phone Ruth Ann Mcgill MD Primary Care Provider + Reason for Visit * Reason Comments Med Refill Encounter Details Date Type Department Care Team ([facility] st Contact Info) Description 03/11/2024 Refill [facility] [address] [place], [place] [phone] Ruth Ann Mcgill MD [address] [place], [place] [phone] Social History Tobacco Use Types Packs/Day Years [...] Pests such as bugs, ants, or mice;Lead [employer] Pipes 05/07/2023 Food Insecurity Answer Date [...] Description 09/13/2025 10:00 AM EST Office Visit [facility] [address] [place] [phone] Ruth Ann Mcgill MD [address] [place] [address] documented as of this encounter Visit Diagnoses Not on filedocumented in this encounter Additional Health Concerns Assessment Noted Time PHQ-9 Depression Total Score: 0 01/21/20 24 4:06 PM EDT documented as of this encounter Care Teams Draw Frame Runner Relationship Specialty Start Date End Date Ruth Ann Mcgill MD [address] [place] [phone] PCP - General Family Medicine 07/02/16 documented as of this encounter
--- OUTSIDE RECORDS SUMMARY | 2025-06-28 13:30 | XMS_ITS | Clinical Summary ---
Author Organization [address] [facility] Address [address] [place] [address] Phone Care Team Providers Care Telesales Advisor Name Role Phone Ruth Ann Mcgill MD Primary Care Provider Social History Tobacco Use Types Packs/Day Years Used Date Smoking Tobacco: Never Assessed Sex and Gender Information Value Date Recorded Sex Assigned at Not on file Legal Sex Male 7:48 AM EDT Gender Identity Not on file Sexual Orientation Not on file Plan of Treatment Upcoming Encounters Date Type Department Care Team ([facility] [address] Contact Info) Description 07/25/2025 3:30 PM EST Office Visit Orthopedic Surgery [place] [phone] [phone] Rogerio Obrien, DPM [address] [phone] Health Maintenance Due Date Last Done Comments Colorectal Cancer Screening: Colonoscopy 1970 DTaP,Tdap,and Td Vaccines (1 - Tdap) 02/03/1987 Hepatitis B Vaccines (1 of 3 - 19+ 3-dose series) 02/03/1987 Pneumococcal Vaccine: 50+ Ye ars (1 of 1 - PCV) 02/03/2018 Zoster Vaccines (1 of 2) 02/03/2018 Depression Screening 07/27/2024 COVID-19 Vaccine (1 - 2024-2 6 season) 2025 Influenza Vaccine (#1) 2025 Cholesterol Screening (Lipid Panel) 05/02/2025 HIV Screening 05/02/2025 Hepatitis C Screening 05/02/2025 Social Influencers of Health Screening 05/02/2025 RSV Immunization Adult Patie nts (1 - 1-dose 75+ series) 02/03/2043 HIB Vaccines Aged Out No longer eligi [...] on patient's age to complete this topic MMR Vaccines Aged Out No longer eligi ble based on patient's age to complete this topic Meningococcal ACWY Vaccine Aged Out N o longer eligible based on patient's age to complete this topic Meningococcal B Vaccine Aged Out No l onger eligible based on patient's age to complete this topic RSV Immunization Patients Un danielle 20 months Aged Out No longer eligible b ased on patient's age to complete this topic Varicella Vaccines Aged Out No longer eligible based on patient's age to complete this topic Insurance [facility] PUBLIC [employer] Care Teams Telesales Advisor Relationship Specialty Start Date End Date Ruth Ann Mcgill MD [address] [place] [phone] PCP - General Internal Medicine 05/02/25
--- OUTSIDE RECORDS SUMMARY | 2025-06-28 13:30 | XMS_ITS | Encounter Summary ---
Author Organization [employer] Address [address] [place] [address] 7 [place] [address] Care Team Providers Care Director Of Professional Services Name Role Phone Ruth Ann Mcgill MD Primary Care Provider + Reason for Visit * Reason Comments Med Refill Encounter Details Date Type Department Care Team (Late st Contact Info) Description 03/18/2023 Refill [facility] [address] [place] [address] Chris Chau MD [address] [place] [address] Social History Tobacco Use Types Packs/Day Years [...] Encounters Date Type Department Care Team (Late Contact Info) Description 09/13/2025 10:00 AM EST Office Visit [facility] [address] [place] [address] Ruth Ann Mcgill MD [address] [place] [address] documented as of this encounter Visit Diagnoses Not on filedocumented in this encounter Additional Health Concerns Assessment Noted Time PHQ-9 Depression Total Score: 4 08/12/19 23 4:07 PM EST documented as of this encounter Care Teams Director Of Professional Services Relationship Specialty Start Date End Date Ruth Ann Mcgill MD [address] [place] [phone] PCP - General Family Medicine 07/02/16 documented as of this encounter
--- OUTSIDE RECORDS SUMMARY | 2025-06-28 13:30 | XMS_ITS | Encounter Summary ---
Author Organization [employer] Address [address] [facility] 7 [place] [address] Care Team Providers Care Vice President Quality Improvement Name Role Phone Ruth Ann Mcgill MD Primary Care Provider + Encounter Details Date Type Department Care Team ([facility] st Contact Info) Description 09/22/2023 Orders Only [facility] [address] [place], [place] [phone] Sue Gamez MD [address] [place] [address] Psoriasis (Primary Dx) Social History Tobacco Use [...] Pests such as bugs, ants, or mice;Lead [place] or Pipes 05/07/2023 Food Insecurity Answer Date [...] Description 09/13/2025 10:00 AM EST Office Visit [facility] MEDICINE [address] [place] [phone] Ruth Ann Mcgill MD [address] [place] [phone] documented as of this encounter Visit Diagnoses Diagnosis Psoriasis- Primary Other psoriasis documented in this encounter Additional Health Concerns Assessment Noted Time PHQ-9 Depression Total Score: 4 08/12/19 23 4:07 PM EST documented as of this encounter Care Teams Vice President Quality Improvement Relationship Specialty Start Date End Date Ruth Ann Mcgill MD [address] [place] [phone] PCP - General Family Medicine 07/02/16 documented as of this encounter
[2025-06-28 15:11] LABS: CT PCR Urine NOT DETECTED (Not Detect.); NG PCR Urine NOT DETECTED (Not Detect.)
== END 2025-06-28 11:16 | disposition home or self-care (01) ==
LOC: HO.HHCL 11:15
PROVIDERS: PCP Internal Medicine; Visit Provider Internal Medicine
DX: Z00.00 Encounter for general adult medical examination without abnormal findings (principal); Z20.2 Contact with and (suspected) exposure to infections with a predominantly sexual mode of transmission
CPT/HCPCS: 87491; 87591